=== PATIENT | female | born 1955 | race Hispanic/Latino ===

== ENCOUNTER 2018-04-26 11:56 | Emergency (ER) | payer MEDICAID ==
[~2018-04-26 11:56] MED LIST: ATOR40TA69 PO; INSU10VI3 SQ; SERT100T12 PO; TRAM50TA4 PO; TRAMADOL PO
[2018-04-26 12:18] LABS: BASOPHILS % (AUTO) 0.6 % (0.0-5.0); EOSINOPHILS % (AUTO) 1.1 % (0.0-8.0); HEMATOCRIT 42.2 % (36-48); LYMPHOCYTES % (AUTO) 31.4 % (21.0-51.0); MEAN CORPUSCULAR HEMOGLOBIN 29.5 pg (27.0-33.0); MEAN CORPUSCULAR HGB CONC 33.6 g/dL (32.0-36.0); MONOCYTES % (AUTO) 5.8 % (3.0-13.0); NEUTROPHILS % (AUTO) 61.1 % (40.0-77.0); NUCLEATED RED BLOOD CELLS 0.1 % (0.0-0.19); PLATELET COUNT (AUTO) 194 K/uL (130-400); RED CELL DISTRIBUTION WIDTH 12.9 % (11.0-15.5)
[2018-04-26] MEDS ORDERED: ASPIRIN 325 MG TABLET ONE (12:19)
[2018-04-26 12:32] LABS: B-TYPE NATRIURETIC PEPTIDE 14 pg/mL (0-100)
[2018-04-26 12:34] LABS: ALBUMIN 3.2 g/dL (3.5-5.0); BILIRUBIN,TOTAL 0.4 mg/dL (0.2-1.0); CREATININE 0.7 mg/dL (0.5-1.5); INR 0.89 (0.85-1.15); POTASSIUM 4.6 mmol/L (3.5-5.1); PROTHROMBIN TIME 9.4 SEC (9.6-11.6); TOTAL PROTEIN, SERUM 6.9 g/dL (6.0-8.3)
[2018-04-26] MEDS ORDERED: INSULIN HUMULIN R 100 UNIT/ML 3ML ONE (13:32)
[2018-04-26 14:17] LABS: CREATININE 0.7 mg/dL (0.5-1.5); POTASSIUM 3.7 mmol/L (3.5-5.1)
== END 2018-04-26 14:53 | disposition home or self-care (01) ==
LOC: EDH 11:56
DX: R07.89 Other chest pain (principal); E11.65 Type 2 diabetes mellitus with hyperglycemia; E78.5 Hyperlipidemia, unspecified; F32.9 Major depressive disorder, single episode, unspecified; Z98.890 Other specified postprocedural states
CPT/HCPCS: 36415; 71045; 80053; 82550; 83880; 84484 ×2; 85025; 85610; 85730; 93005 ×2; 96374; 99284; J1815; 80048

== ENCOUNTER 2018-11-27 18:15 | Emergency (ER) | payer MEDICAID ==
[2018-11-27 20:33] LABS: BASOPHILS % (AUTO) 1.4 % (0.0-5.0); EOSINOPHILS % (AUTO) 1.4 % (0.0-8.0); HEMATOCRIT 45.5 % (36-48); LYMPHOCYTES % (AUTO) 44.7 % (21.0-51.0); MEAN CORPUSCULAR HEMOGLOBIN 30.1 pg (27.0-33.0); MEAN CORPUSCULAR HGB CONC 34.2 g/dL (32.0-36.0); MEAN CORPUSCULAR VOLUME 87.9 fL (79-99); MONOCYTES % (AUTO) 7.2 % (3.0-13.0); NEUTROPHILS % (AUTO) 45.3 % (40.0-77.0); NUCLEATED RED BLOOD CELLS 0.2 % (0.0-0.19); PLATELET COUNT (AUTO) 192 K/uL (130-400); RED BLOOD CELL COUNT(AUTO) 5.18 MIL/uL (4.00-5.50); RED CELL DISTRIBUTION WIDTH 13.2 % (11.0-15.5); WHITE BLOOD COUNT (AUTO) 7.9 K/uL (4.8-10.8)
[2018-11-27 20:41] LABS: CREATININE 0.7 mg/dL (0.5-1.5); POTASSIUM 4.1 mmol/L (3.5-5.1)
[2018-11-27 20:51] LABS: ALBUMIN 3.6 g/dL (3.5-5.0); BILIRUBIN,TOTAL 0.4 mg/dL (0.2-1.0); TOTAL PROTEIN, SERUM 7.2 g/dL (6.0-8.3)
== END 2018-11-27 21:48 | disposition home or self-care (01) ==
LOC: EDH 18:15
DX: N64.9 Disorder of breast, unspecified (principal); E11.65 Type 2 diabetes mellitus with hyperglycemia; E78.5 Hyperlipidemia, unspecified; F32.9 Major depressive disorder, single episode, unspecified; Z87.891 Personal history of nicotine dependence; Z79.4 Long term (current) use of insulin
CPT/HCPCS: 36415; 71046; 76641; 80053; 85025

== ENCOUNTER → 2018-12-11 | Outpatient (CLI) | payer MEDICAID | END | disposition home or self-care (01) | LOC: RAH 10:54 | PROVIDERS: ATTEND Family Medicine | DX: R92.1 Mammographic calcification found on diagnostic imaging of breast (principal); N63.10 Unspecified lump in the right breast, unspecified quadrant | CPT/HCPCS: 76641; 77066 ==

== ENCOUNTER → 2019-01-09 | Outpatient (CLI) | payer MEDICAID | END | disposition home or self-care (01) | LOC: RAH 13:34 | PROVIDERS: ATTEND Family Medicine | DX: E11.22 Type 2 diabetes mellitus with diabetic chronic kidney disease (principal); N18.9 Chronic kidney disease, unspecified | CPT/HCPCS: 76770 ==

== ENCOUNTER 2019-03-12 13:18 | Emergency (ER) | payer MEDICAID ==
[2019-03-12 14:19] LABS: BASOPHILS % (AUTO) 0.8 % (0.0-5.0); EOSINOPHILS % (AUTO) 1.3 % (0.0-8.0); HEMATOCRIT 44.9 % (36-48); LYMPHOCYTES % (AUTO) 30.9 % (21.0-51.0); MEAN CORPUSCULAR HEMOGLOBIN 30.4 pg (27.0-33.0); MEAN CORPUSCULAR VOLUME 89.5 fL (79-99); NUCLEATED RED BLOOD CELLS 0.1 % (0.0-0.19); PLATELET COUNT (AUTO) 209 K/uL (130-400); RED BLOOD CELL COUNT(AUTO) 5.02 MIL/uL (4.00-5.50); RED CELL DISTRIBUTION WIDTH 13.2 % (11.0-15.5); WHITE BLOOD COUNT (AUTO) 7.4 K/uL (4.8-10.8)
[2019-03-12] MEDS ORDERED: ONDANSETRON HCL 4 MG/2 ML VIAL ONE (14:36)
[2019-03-12] MEDS ORDERED: MORPHINE SULFATE 4 MG/1ML SYG ONE (14:37)
[2019-03-12] MEDS ORDERED: SODIUM CHLORIDE 0.9% 1000ML 1,000 ML IV ONE ×2 (14:39→15:11)
[2019-03-12 14:46] LABS: ALBUMIN 3.5 g/dL (3.5-5.0); BILIRUBIN,TOTAL 0.3 mg/dL (0.2-1.0); CREATININE 0.8 mg/dL (0.5-1.5); POTASSIUM 4.3 mmol/L (3.5-5.1); TOTAL PROTEIN, SERUM 7.4 g/dL (6.0-8.3)
[2019-03-12] MEDS ORDERED: INSULIN HUMULIN R 100 UNIT/ML 3ML ONE (15:14)
[2019-03-12 15:48] LABS: APPEARANCE,URINE Clear (CLEAR); BILIRUBIN,URINE Negative (NEGATIVE); COLOR,URINE Yellow (YELLOW); GLUCOSE, URINE (UA) >=1000 mg/dL (NEGATIVE); KETONES,URINE Negative (NEGATIVE); LEUKOCYTE ESTERASE ,URINE Negative (NEGATIVE); NITRATE,URINE Negative (NEGATIVE); OCCULT BLOOD,URINE Negative (NEGATIVE); PROTEIN,URINE Negative (NEGATIVE); UROBILINOGEN,URINE 0.2 mg/dL (0.2-1.0)
== END 2019-03-12 17:20 | disposition home or self-care (01) ==
LOC: EDH 13:18
DX: K59.00 Constipation, unspecified (principal); E11.65 Type 2 diabetes mellitus with hyperglycemia; R10.9 Unspecified abdominal pain; F32.9 Major depressive disorder, single episode, unspecified; E78.5 Hyperlipidemia, unspecified; Z79.4 Long term (current) use of insulin
CPT/HCPCS: 36415; 74176; 80053; 81003; 82948 ×2; 83690; 85025; 96361; 96374; 96375; 99285; J1815; J2270; J2405; J7030 ×2

== ENCOUNTER 2019-07-26 06:19 | Day surgery (SDC) | payer MEDICAID ==
[~2019-07-26] VITALS: Ht 170.2 cm; Wt 90.7 kg
[2019-07-26] MEDS ORDERED: SODIUM CHLORIDE 0.9% 1000ML 1,000 ML IV ONE (06:24)
[2019-07-26 08:10] VITALS: BP 104/51
[2019-07-26] MEDS ORDERED: LEVO50TA11 PO (08:24)
[2019-07-26] MEDS ORDERED: PROPOFOL 10 MG/ML 20ML VIAL IV ONE (09:03)
[2019-07-26 09:15] VITALS: BP 107/71
[2019-07-26 09:20] VITALS: BP 117/69
[2019-07-26 09:25] VITALS: BP 120/71
[2019-07-26 09:30] VITALS: BP 113/67
== END 2019-07-26 09:40 | disposition home or self-care (01) ==
LOC: ENDO 06:19 → DAH 06:19 → ENDO 09:40
PROVIDERS: ATTEND Internal Medicine Gastroenterology
DX: Z12.11 Encounter for screening for malignant neoplasm of colon (principal); I10 Essential (primary) hypertension; E78.5 Hyperlipidemia, unspecified; E11.9 Type 2 diabetes mellitus without complications; E03.9 Hypothyroidism, unspecified; E66.9 Obesity, unspecified; F17.210 Nicotine dependence, cigarettes, uncomplicated; Z68.31 Body mass index [BMI] 31.0-31.9, adult; Z86.010 Personal history of colon polyps; Z79.899 Other long term (current) drug therapy; Z79.4 Long term (current) use of insulin
CPT/HCPCS: 82948 ×2; A4215; A4221; A4222; A4223; A4606; A4615; A4663; G0105; J2704; J7030

== ENCOUNTER 2022-10-29 10:46 | Emergency (ER) | payer MEDICARE ==
[~2022-10-29] VITALS: Ht 152.4 cm; Wt 97.1 kg
[~2022-10-29 10:46] MED LIST changes: +LEVO50TA11 PO; -SERT100T12 PO; -TRAM50TA4 PO; -TRAMADOL PO
[2022-10-29] MEDS ORDERED: 0.9%NACL 1000ML 1,000 ML IV ONE ×2 (11:30→13:00)
[2022-10-29 11:53] LABS: EOSINOPHILS % (AUTO) 1.3 % (0.0-8.0); HEMATOCRIT 45.9 % (36-48); LYMPHOCYTES % (AUTO) 35.7 % (21.0-51.0); MEAN CORPUSCULAR HEMOGLOBIN 29.3 pg (27.0-33.0); MEAN CORPUSCULAR HGB CONC 34.4 g/dL (32.0-36.0); MEAN CORPUSCULAR VOLUME 85.2 fL (79-99); MONOCYTES % (AUTO) 7.8 % (3.0-13.0); NEUTROPHILS % (AUTO) 52.6 % (40.0-77.0); PLATELET COUNT (AUTO) 227 K/uL (130-400); RED BLOOD CELL COUNT(AUTO) 5.39 MIL/uL (4.00-5.50); WHITE BLOOD COUNT (AUTO) 9.2 K/uL (4.8-10.8)
[2022-10-29 11:59] LABS: CREATININE 0.7 mg/dL (0.5-1.5); POTASSIUM 4.6 mmol/L (3.5-5.1)
[2022-10-29 12:04] LABS: ALBUMIN 3.7 g/dL (3.5-5.0); TOTAL PROTEIN, SERUM 7.5 g/dL (6.0-8.3)
[2022-10-29 12:22] LABS: APPEARANCE,URINE CLEAR (CLEAR); BILIRUBIN,URINE NEGATIVE (NEGATIVE); COLOR,URINE LIGHT-YELLOW (YELLOW); GLUCOSE, URINE (UA) >=1000 mg/dL (NEGATIVE); KETONES,URINE 20 mg/dL (NEGATIVE); LEUKOCYTE ESTERASE ,URINE 25 Leu/uL (NEGATIVE); NITRATE,URINE NEGATIVE (NEGATIVE); OCCULT BLOOD,URINE NEGATIVE (NEGATIVE); PH,URINE 5.5 (5.0-8.0); PROTEIN,URINE NEGATIVE (NEGATIVE); UROBILINOGEN,URINE 0.2 mg/dL (0.2-1.0)
[2022-10-29 12:24] LABS: RBC,URINE 0-1 /HPF (0-1); SQUAMOUS EPITHELIAL CELL,UR FEW /HPF (0-2)
[2022-10-29] MEDS ORDERED: CIPOTIC OT (14:05)
[2022-10-29 18:12] VITALS: BP 136/78
== END 2022-10-29 18:13 | disposition home or self-care (01) ==
LOC: EDH 10:46
DX: H60.91 Unspecified otitis externa, right ear (principal); E11.9 Type 2 diabetes mellitus without complications; E78.00 Pure hypercholesterolemia, unspecified; Z79.4 Long term (current) use of insulin; Z20.822 Contact with and (suspected) exposure to COVID-19
CPT/HCPCS: 99284; 96360; 70486; 71045; 96361; 87635; 80053; 85025; 87880; 87804 ×2; 82948; 83605; 81001; 36415; C9803; J7030

== ENCOUNTER 2023-08-28 11:28 | Observation (INO) | payer MEDICARE ==
[~2023-08-28] VITALS: Ht 147.3 cm; Wt 92.6 kg
[~2023-08-28 11:28] MED LIST changes: +CIPOTIC OT
[2023-08-28 11:51] LABS: BASOPHILS # (AUTO) 0.08 K/uL (0.00-0.20); BASOPHILS % (AUTO) 0.9 % (0.0-5.0); EOSINOPHILS # (AUTO) 0.22 K/uL (0.00-0.70); EOSINOPHILS % (AUTO) 2.6 % (0.0-8.0); HEMATOCRIT 42.9 % (36-48); IMMATURE GRANULOCYTE ABSOLUTE 0.15 K/uL (0-1); LYMPHOCYTES # (AUTO) 2.8 K/uL (1.0-4.8); LYMPHOCYTES % (AUTO) 33.1 % (21.0-51.0); MEAN CORPUSCULAR HEMOGLOBIN 29.2 pg (27.0-33.0); MEAN CORPUSCULAR HGB CONC 34.3 g/dL (32.0-36.0); MEAN CORPUSCULAR VOLUME 85.1 fL (79-99); MONOCYTES # (AUTO) 0.6 K/uL (0.1-1.0); MONOCYTES % (AUTO) 6.5 % (3.0-13.0); NEUTROPHILS # (AUTO) 4.7 K/uL (1.8-7.7); NEUTROPHILS % (AUTO) 55.1 % (40.0-77.0); PLATELET COUNT (AUTO) 244 K/uL (130-400); RED BLOOD CELL COUNT(AUTO) 5.04 MIL/uL (4.00-5.50); RED CELL DISTRIBUTION WIDTH 13.1 % (11.0-15.5); WHITE BLOOD COUNT (AUTO) 8.5 K/uL (4.8-10.8)
[2023-08-28 12:00] LABS: APPEARANCE,URINE CLEAR (CLEAR); BILIRUBIN,URINE NEGATIVE (NEGATIVE); COLOR,URINE LIGHT-YELLOW (YELLOW); GLUCOSE, URINE (UA) >=1000 mg/dL (NEGATIVE); KETONES,URINE NEGATIVE (NEGATIVE); LEUKOCYTE ESTERASE ,URINE NEGATIVE Leu/uL (NEGATIVE); NITRATE,URINE NEGATIVE (NEGATIVE); OCCULT BLOOD,URINE SMALL (NEGATIVE); PROTEIN,URINE NEGATIVE (NEGATIVE); UROBILINOGEN,URINE 0.2 mg/dL (0.2-1.0)
[2023-08-28] MEDS: NITROGLYCERIN 0.4 MG SL TAB SL ONE (12:00)
[2023-08-28] MEDS: NITROGLYCERIN 0.4 MG SL TAB SL PRN (12:00)
[2023-08-28 12:01] LABS: ADD UA MICROSCOPIC YES
[2023-08-28 12:06] LABS: MUCUS,URINE RARE LPF (None Seen); SQUAMOUS EPITHELIAL CELL,UR FEW /HPF (0-2)
[2023-08-28 12:07] LABS: ALBUMIN 3.4 g/dL (3.5-5.0); BILIRUBIN,TOTAL 0.4 mg/dL (0.2-1.0); CREATININE 0.6 mg/dL (0.5-1.0); POTASSIUM 4.8 mmol/L (3.5-5.1); TOTAL PROTEIN, SERUM 7.5 g/dL (6.0-8.3)
[2023-08-28] MEDS: 0.9% NACL 500ML IV.SOLN 500 ML IV ONE (13:08)
[2023-08-28] MEDS: INSULIN HUMULIN R 100 UNIT/ML 3ML IV ONE (13:11)
[2023-08-28] MEDS ORDERED: IOHEXOL-350 75 ML VIAL IV ONE (13:18)
[2023-08-28] MEDS ORDERED: TICA90TA PO (14:15)
[2023-08-28] MEDS ORDERED: ASPI-1197 PO (14:15)
[2023-08-28] MEDS ORDERED: NITR0.4T50 SL (14:15)
[2023-08-28] MEDS ORDERED: ACETAMINOPHEN 325 MG TAB PO PRN (14:30)
[2023-08-28] MEDS ORDERED: ONDANSETRON 4MG TABLET PO PRN (14:30)
[2023-08-28] MEDS: INSULIN LISPRO 100 UNIT/ML 3ML SQ SCH (16:29)
[2023-08-28 18:06] VITALS: O2SAT 99
[2023-08-28 18:10] VITALS: BP 123/73; PULSE 72; RESP 17
[2023-08-28] MEDS ORDERED: KETOROLAC 30MG VIAL (30MG/ML) IVP PRN (19:00)
[2023-08-28 19:45] VITALS: BP 133/72; PULSE 71; RESP 20
[2023-08-28] MEDS: KETOROLAC 30MG VIAL (30MG/ML) IVP SCH (19:53)
[2023-08-28 20:00] VITALS: O2SAT 100
[2023-08-28] MEDS: MELATONIN 5 MG TABLET PO SCH (21:35)
[2023-08-28] MEDS: TICAGRELOR 90 MG TABLET PO SCH (21:35)
[2023-08-29 00:45] VITALS: BP 108/55; PULSE 64; RESP 18
[2023-08-29 03:45] VITALS: BP 101/65; PULSE 62; RESP 20
[2023-08-29 07:00] VITALS: BP 125/63; PULSE 60; RESP 17
[2023-08-29 08:10] VITALS: O2SAT 98
[2023-08-29] MEDS: ASPIRIN 81MG CHEW TAB PO SCH (08:15)
[2023-08-29] MEDS: ENOXAPARIN SODIUM 40 MG/0.4 ML SYRINGE SQ SCH (08:16)
[2023-08-29 11:00] VITALS: BP 111/68; PULSE 68; RESP 20
[2023-08-29] MEDS: LACTULOSE 20 GM/30 ML UDCUP PO SCH (12:08)
== END 2023-08-29 16:00 | disposition home or self-care (01) ==
LOC: EDH 11:28 → EDHIP 14:01 → INTOOBSV 14:01 → 2DH 17:06
PROVIDERS: ADMIT Internal Medicine Infectious Disease; ATTEND Internal Medicine Infectious Disease
DX: R07.89 Other chest pain (principal); E11.65 Type 2 diabetes mellitus with hyperglycemia; I10 Essential (primary) hypertension; K59.00 Constipation, unspecified; E78.00 Pure hypercholesterolemia, unspecified; I25.119 Atherosclerotic heart disease of native coronary artery with unspecified angina pectoris; E66.01 Morbid (severe) obesity due to excess calories; I44.0 Atrioventricular block, first degree; Z95.5 Presence of coronary angioplasty implant and graft; Z79.899 Other long term (current) drug therapy; Z79.4 Long term (current) use of insulin; Z79.82 Long term (current) use of aspirin; Z68.41 Body mass index [BMI] 40.0-44.9, adult
CPT/HCPCS: 96374; 96375; 99285; 84484 ×3; 80053; 83880; 85025; 85378; 82948 ×5; 81001; 36415; 71045; 71270; 93005; 96372; J1815; G0378 ×26; J1885; Q9967; J1650

== ENCOUNTER → 2023-09-14 | Outpatient (CLI) | payer MEDICARE ==
[~2023-09-14] MED LIST changes: +ASPI-1197 PO; +NITR0.4T50 SL; +TICA90TA PO
== END | disposition home or self-care (01) ==
LOC: RAH 10:19
PROVIDERS: ATTEND Internal Medicine Cardiovascular Disease
DX: R07.9 Chest pain, unspecified (principal)
CPT/HCPCS: 93306

== ENCOUNTER → 2023-10-24 | Outpatient (CLI) | payer MEDICARE ==
[2023-10-24 16:43] LABS: MAGNESIUM 1.8 mg/dL (1.80-2.40)
== END | disposition home or self-care (01) ==
LOC: LAB 13:19
PROVIDERS: ATTEND Physician Assistant
DX: I10 Essential (primary) hypertension (principal)
CPT/HCPCS: 36415; 83735; 83880

== ENCOUNTER 2023-12-12 14:40 | Emergency (ER) | payer MEDICARE ==
[~2023-12-12] VITALS: Ht 149.9 cm; Wt 97.1 kg
[2023-12-12 14:48] VITALS: BP 136/72; PULSE 80; RESP 20
[2023-12-12] MEDS: GABAPENTIN 100 MG CAPSULE PO SCH (17:47)
[2023-12-12] MEDS ORDERED: GABA-529 PO (17:58)
== END 2023-12-12 18:05 | disposition home or self-care (01) ==
LOC: EDH 15:10
DX: G89.29 Other chronic pain (principal); M79.604 Pain in right leg; M79.605 Pain in left leg; E11.51 Type 2 diabetes mellitus with diabetic peripheral angiopathy without gangrene; E78.00 Pure hypercholesterolemia, unspecified; Z79.4 Long term (current) use of insulin; Z79.82 Long term (current) use of aspirin; Z95.5 Presence of coronary angioplasty implant and graft; Z98.890 Other specified postprocedural states

== ENCOUNTER 2023-12-28 15:14 | Emergency (ER) | payer MEDICARE ==
[~2023-12-28] VITALS: Ht 157.5 cm; Wt 99.8 kg
[~2023-12-28 15:14] MED LIST changes: +GABA-529 PO
[2023-12-28 15:51] LABS: APPEARANCE,URINE CLEAR (CLEAR); BILIRUBIN,URINE NEGATIVE (NEGATIVE); COLOR,URINE COLORLESS (YELLOW); GLUCOSE, URINE (UA) >=1000 mg/dL (NEGATIVE); KETONES,URINE NEGATIVE (NEGATIVE); LEUKOCYTE ESTERASE ,URINE NEGATIVE Leu/uL (NEGATIVE); NITRATE,URINE NEGATIVE (NEGATIVE); OCCULT BLOOD,URINE NEGATIVE (NEGATIVE); PROTEIN,URINE NEGATIVE (NEGATIVE); UROBILINOGEN,URINE 0.2 mg/dL (0.2-1.0)
[2023-12-28 15:52] LABS: ADD UA MICROSCOPIC YES
[2023-12-28 15:53] LABS: SQUAMOUS EPITHELIAL CELL,UR FEW /HPF (0-2)
[2023-12-28 15:53] LABS: BASOPHILS # (AUTO) 0.08 K/uL (0.00-0.20); EOSINOPHILS % (AUTO) 1.2 % (0.0-8.0); HEMATOCRIT 42.2 % (36-48); IMMATURE GRANULOCYTE ABSOLUTE 0.13 K/uL (0-1); LYMPHOCYTES # (AUTO) 2.9 K/uL (1.0-4.8); LYMPHOCYTES % (AUTO) 34.9 % (21.0-51.0); MEAN CORPUSCULAR HEMOGLOBIN 29.4 pg (27.0-33.0); MEAN CORPUSCULAR HGB CONC 35.3 g/dL (32.0-36.0); MEAN CORPUSCULAR VOLUME 83.2 fL (79-99); MONOCYTES # (AUTO) 0.7 K/uL (0.1-1.0); MONOCYTES % (AUTO) 8.3 % (3.0-13.0); NEUTROPHILS # (AUTO) 4.3 K/uL (1.8-7.7); PLATELET COUNT (AUTO) 257 K/uL (130-400); RED BLOOD CELL COUNT(AUTO) 5.07 MIL/uL (4.00-5.50); RED CELL DISTRIBUTION WIDTH 12.8 % (11.0-15.5); WHITE BLOOD COUNT (AUTO) 8.2 K/uL (4.8-10.8)
[2023-12-28 16:14] LABS: CREATININE 0.9 mg/dL (0.5-1.0); POTASSIUM 4.1 mmol/L (3.5-5.1)
[2023-12-28 16:45] LABS: INR <= 0.93 (0.85-1.15); PROTHROMBIN TIME 9.9 SEC (9.6-11.6)
[2023-12-28 16:46] LABS: PARTIAL THROMBOPLASTIN TIME 23.6 SEC (26.3-35.5)
[2023-12-28] MEDS: INSULIN HUMULIN R 100 UNIT/ML 3ML IV ONE (16:58)
[2023-12-28] MEDS: 0.9%NACL 1000ML 1,000 ML IV SCH (16:58)
[2023-12-28 17:17] LABS: AMPHET/METH SCREEN,URINE NEGATIVE (NEGATIVE); BARBITURATE SCREEN, URINE NEGATIVE (NEGATIVE); BENZODIAZEPINES SCREEN,URINE NEGATIVE (NEGATIVE); CANNABINOID SCREEN,URINE NEGATIVE (NEGATIVE); COCAINE SCREEN,URINE NEGATIVE (NEGATIVE); OPIATE SCREEN,URINE NEGATIVE (NEGATIVE); PHENCYCLIDINE SCREEN,URINE NEGATIVE (NEGATIVE)
[2023-12-28] MEDS: KETOROLAC 30MG VIAL (30MG/ML) IM ONE (18:41)
[2023-12-28 19:01] VITALS: BP 129/70; PULSE 77; RESP 17; O2SAT 100
[2024-01-01] MEDS ORDERED: CEPH500C2 PO (15:39)
[2024-01-01] MEDS ORDERED: INSU200I4 SQ ×2 (15:39)
[2024-01-01] MEDS ORDERED: METO-408 PO (15:39)
== END 2023-12-28 19:03 | disposition home or self-care (01) ==
LOC: EDH 15:14
DX: E11.65 Type 2 diabetes mellitus with hyperglycemia (principal); E78.00 Pure hypercholesterolemia, unspecified; I10 Essential (primary) hypertension; Z79.82 Long term (current) use of aspirin; Z79.899 Other long term (current) drug therapy; Z98.890 Other specified postprocedural states
CPT/HCPCS: 99285; 96374; 96361; 71045; 84484; 80048; 80305; 83690; 85025; 85610; 85730; 82948; 83605; 81001; 36415; 96372; 93005; 84145; J1815; J7030; J1885

== ENCOUNTER 2023-12-30 12:37 | Emergency (ER) | payer MEDICARE ==
[~2023-12-30] VITALS: Ht 177.8 cm; Wt 96.2 kg
[2023-12-30] MEDS: MORPHINE 2 MG SYG IVP ONE ×2 (13:56→14:29)
[2023-12-30] MEDS: ONDANSETRON 4MG INJ IVP ONE (13:56)
[2023-12-30] MEDS: FAMOTIDINE 20MG VIAL IV ONE (13:56)
[2023-12-30 14:06] LABS: BASOPHILS # (AUTO) 0.06 K/uL (0.00-0.20); BASOPHILS % (AUTO) 0.9 % (0.0-5.0); EOSINOPHILS # (AUTO) 0.15 K/uL (0.00-0.70); EOSINOPHILS % (AUTO) 2.3 % (0.0-8.0); HEMATOCRIT 39.9 % (36-48); LYMPHOCYTES # (AUTO) 2.7 K/uL (1.0-4.8); LYMPHOCYTES % (AUTO) 40.7 % (21.0-51.0); MEAN CORPUSCULAR HEMOGLOBIN 29.6 pg (27.0-33.0); MEAN CORPUSCULAR HGB CONC 34.6 g/dL (32.0-36.0); MEAN CORPUSCULAR VOLUME 85.4 fL (79-99); MONOCYTES # (AUTO) 0.5 K/uL (0.1-1.0); MONOCYTES % (AUTO) 7.6 % (3.0-13.0); NEUTROPHILS # (AUTO) 3.1 K/uL (1.8-7.7); PLATELET COUNT (AUTO) 237 K/uL (130-400); RED BLOOD CELL COUNT(AUTO) 4.67 MIL/uL (4.00-5.50); WHITE BLOOD COUNT (AUTO) 6.6 K/uL (4.8-10.8)
[2023-12-30 14:12] LABS: APPEARANCE,URINE CLEAR (CLEAR); BILIRUBIN,URINE NEGATIVE (NEGATIVE); COLOR,URINE LIGHT-YELLOW (YELLOW); GLUCOSE, URINE (UA) >=1000 mg/dL (NEGATIVE); KETONES,URINE NEGATIVE (NEGATIVE); LEUKOCYTE ESTERASE ,URINE NEGATIVE Leu/uL (NEGATIVE); NITRATE,URINE NEGATIVE (NEGATIVE); OCCULT BLOOD,URINE NEGATIVE (NEGATIVE); PROTEIN,URINE NEGATIVE (NEGATIVE); SQUAMOUS EPITHELIAL CELL,UR FEW /HPF (0-2); UROBILINOGEN,URINE 0.2 mg/dL (0.2-1.0)
[2023-12-30 14:14] LABS: POTASSIUM 4.3 mmol/L (3.5-5.1)
[2023-12-30 14:23] LABS: ALBUMIN 3.1 g/dL (3.5-5.0); BILIRUBIN,TOTAL 0.3 mg/dL (0.2-1.0); TOTAL PROTEIN, SERUM 6.7 g/dL (6.0-8.3)
[2023-12-30 14:39] LABS: INR <= 0.93 (0.85-1.15); PROTHROMBIN TIME 9.9 SEC (9.6-11.6)
[2023-12-30 14:41] LABS: PARTIAL THROMBOPLASTIN TIME 23.8 SEC (26.3-35.5)
[2023-12-30] MEDS: POLYETHYLENE GLYCOL 3350 17 GM POWD.PACK PO ONE (14:43)
[2023-12-30] MEDS ORDERED: DOCU-116 PO (15:28)
[2023-12-30 15:40] VITALS: BP 131/70; PULSE 74; RESP 18; O2SAT 96
[2024-01-01] MEDS ORDERED: METO-408 PO (15:39)
[2024-01-01] MEDS ORDERED: CEPH500C2 PO (15:39)
[2024-01-01] MEDS ORDERED: INSU200I4 SQ ×2 (15:39)
== END 2023-12-30 16:00 | disposition home or self-care (01) ==
LOC: EDH 12:37
DX: K59.00 Constipation, unspecified (principal); E11.9 Type 2 diabetes mellitus without complications; E78.00 Pure hypercholesterolemia, unspecified; I10 Essential (primary) hypertension; Z79.82 Long term (current) use of aspirin; Z79.899 Other long term (current) drug therapy; Z98.890 Other specified postprocedural states
CPT/HCPCS: 99285; 74176; 96374; 96375; 84484; 80053; 85025; 85610; 85730; 83605; 81001; 36415; 96376; 93005; 84145; J3490; J2270 ×2; J2405

== ENCOUNTER → 2024-01-01 | Emergency (ER) | payer MEDICARE ==
[~2024-01-01] VITALS: Ht 177.8 cm; Wt 102.1 kg
[~2024-01-01] MED LIST changes: +BisaCODYL 10 MG SUPP.RECT RC ONE; +CEPH500C2 PO; +DOCU-116 PO; +INSU200I4 SQ; +LACTULOSE 20 GM/30 ML UDCUP PO ONE; +METO-408 PO
[2024-01-01 15:56] VITALS: BP 95/65; PULSE 76; RESP 16
[2024-01-01 16:26] LABS: BASOPHILS # (AUTO) 0.05 K/uL (0.00-0.20); BASOPHILS % (AUTO) 0.6 % (0.0-5.0); EOSINOPHILS # (AUTO) 0.18 K/uL (0.00-0.70); EOSINOPHILS % (AUTO) 2.2 % (0.0-8.0); HEMATOCRIT 42.6 % (36-48); IMMATURE GRANULOCYTE ABSOLUTE 0.12 K/uL (0-1); LYMPHOCYTES # (AUTO) 3.2 K/uL (1.0-4.8); MEAN CORPUSCULAR HEMOGLOBIN 29.3 pg (27.0-33.0); MEAN CORPUSCULAR VOLUME 86.1 fL (79-99); MONOCYTES # (AUTO) 0.6 K/uL (0.1-1.0); MONOCYTES % (AUTO) 7.3 % (3.0-13.0); NEUTROPHILS # (AUTO) 4.1 K/uL (1.8-7.7); NEUTROPHILS % (AUTO) 49.4 % (40.0-77.0); PLATELET COUNT (AUTO) 254 K/uL (130-400); RED BLOOD CELL COUNT(AUTO) 4.95 MIL/uL (4.00-5.50); RED CELL DISTRIBUTION WIDTH 12.8 % (11.0-15.5); WHITE BLOOD COUNT (AUTO) 8.2 K/uL (4.8-10.8)
[2024-01-01 16:34] LABS: CREATININE 0.8 mg/dL (0.5-1.0); POTASSIUM 4.6 mmol/L (3.5-5.1)
[2024-01-01 16:38] LABS: ALBUMIN 3.4 g/dL (3.5-5.0); BILIRUBIN,TOTAL 0.4 mg/dL (0.2-1.0); TOTAL PROTEIN, SERUM 7.4 g/dL (6.0-8.3)
== END ==
LOC: EDH 15:41
DX: K59.00 Constipation, unspecified (principal); R10.9 Unspecified abdominal pain; E11.9 Type 2 diabetes mellitus without complications; E78.00 Pure hypercholesterolemia, unspecified; I10 Essential (primary) hypertension; Z79.4 Long term (current) use of insulin; Z79.82 Long term (current) use of aspirin; Z79.899 Other long term (current) drug therapy; Z98.890 Other specified postprocedural states
CPT/HCPCS: 36415; 80053; 83690; 85025

== ENCOUNTER → 2024-01-01 | Outpatient (CLI) | payer MEDICARE ==
[~2024-01-01] VITALS: Ht 157.5 cm; Wt 95.4 kg
[~2024-01-01] MED LIST changes: -BisaCODYL 10 MG SUPP.RECT RC ONE; -LACTULOSE 20 GM/30 ML UDCUP PO ONE
[2024-01-01 15:07] LABS: BASOPHILS # (AUTO) 0.04 K/uL (0.00-0.20); BASOPHILS % (AUTO) 0.5 % (0.0-5.0); EOSINOPHILS % (AUTO) 2.5 % (0.0-8.0); HEMATOCRIT 43.5 % (36-48); IMMATURE GRANULOCYTE ABSOLUTE 0.13 K/uL (0-1); LYMPHOCYTES % (AUTO) 37.5 % (21.0-51.0); MEAN CORPUSCULAR HEMOGLOBIN 29.4 pg (27.0-33.0); MEAN CORPUSCULAR HGB CONC 33.8 g/dL (32.0-36.0); MONOCYTES # (AUTO) 0.6 K/uL (0.1-1.0); MONOCYTES % (AUTO) 7.1 % (3.0-13.0); NEUTROPHILS # (AUTO) 4.1 K/uL (1.8-7.7); NEUTROPHILS % (AUTO) 50.8 % (40.0-77.0); PLATELET COUNT (AUTO) 250 K/uL (130-400)
[2024-01-01 15:08] LABS: APPEARANCE,URINE CLEAR (CLEAR); BILIRUBIN,URINE NEGATIVE (NEGATIVE); COLOR,URINE LIGHT-YELLOW (YELLOW); GLUCOSE, URINE (UA) >=1000 mg/dL (NEGATIVE); KETONES,URINE NEGATIVE (NEGATIVE); LEUKOCYTE ESTERASE ,URINE NEGATIVE Leu/uL (NEGATIVE); NITRATE,URINE NEGATIVE (NEGATIVE); OCCULT BLOOD,URINE NEGATIVE (NEGATIVE); PROTEIN,URINE NEGATIVE (NEGATIVE); UROBILINOGEN,URINE 0.2 mg/dL (0.2-1.0)
[2024-01-01 15:10] LABS: ADD UA MICROSCOPIC YES
[2024-01-01 15:11] LABS: BACTERIA,URINE RARE /HPF (None Seen); SQUAMOUS EPITHELIAL CELL,UR FEW /HPF (0-2)
[2024-01-01 15:14] LABS: CREATININE 0.7 mg/dL (0.5-1.0); POTASSIUM 4.9 mmol/L (3.5-5.1)
[2024-01-01 15:20] VITALS: BP 130/73; PULSE 75; RESP 19
[2024-01-01 15:20] LABS: INR <= 0.93 (0.85-1.15); PROTHROMBIN TIME 10.1 SEC (9.6-11.6)
[2024-01-01 15:21] LABS: PARTIAL THROMBOPLASTIN TIME 23.8 SEC (26.3-35.5)
[2024-01-01 15:43] LABS: B-TYPE NATRIURETIC PEPTIDE 11 pg/mL (0-100)
== END | disposition home or self-care (01) ==
LOC: DAH 10:00 → EDSTATUS 01-03 08:00
PROVIDERS: ATTEND Internal Medicine Cardiovascular Disease
DX: I73.9 Peripheral vascular disease, unspecified (principal); I44.4 Left anterior fascicular block; M79.605 Pain in left leg
CPT/HCPCS: 36415; 71045; 80048; 81001; 83880; 85025; 85610; 85730; 93005

== ENCOUNTER 2024-01-03 06:18 | Observation (INO) | payer MEDICARE ==
[~2024-01-03] VITALS: Ht 152.4 cm; Wt 94.1 kg
[~2024-01-03 06:18] MED LIST changes: -ASPI-1197 PO; -ATOR40TA69 PO; -CIPOTIC OT; -DOCU-116 PO; -GABA-529 PO; -INSU10VI3 SQ; -LEVO50TA11 PO
[2024-01-03 07:34] LABS: BASOPHILS # (AUTO) 0.05 K/uL (0.00-0.20); BASOPHILS % (AUTO) 0.7 % (0.0-5.0); EOSINOPHILS # (AUTO) 0.21 K/uL (0.00-0.70); EOSINOPHILS % (AUTO) 2.8 % (0.0-8.0); HEMATOCRIT 41.6 % (36-48); IMMATURE GRANULOCYTE ABSOLUTE 0.13 K/uL (0-1); LYMPHOCYTES # (AUTO) 2.7 K/uL (1.0-4.8); LYMPHOCYTES % (AUTO) 36.2 % (21.0-51.0); MEAN CORPUSCULAR HEMOGLOBIN 29.2 pg (27.0-33.0); MEAN CORPUSCULAR HGB CONC 33.9 g/dL (32.0-36.0); MEAN CORPUSCULAR VOLUME 86.1 fL (79-99); MONOCYTES # (AUTO) 0.6 K/uL (0.1-1.0); MONOCYTES % (AUTO) 8.6 % (3.0-13.0); NEUTROPHILS # (AUTO) 3.7 K/uL (1.8-7.7); PLATELET COUNT (AUTO) 218 K/uL (130-400); RED BLOOD CELL COUNT(AUTO) 4.83 MIL/uL (4.00-5.50); RED CELL DISTRIBUTION WIDTH 12.8 % (11.0-15.5); WHITE BLOOD COUNT (AUTO) 7.5 K/uL (4.8-10.8)
[2024-01-03 07:37] LABS: CREATININE 0.7 mg/dL (0.5-1.0); POTASSIUM 4.1 mmol/L (3.5-5.1)
[2024-01-03 08:17] LABS: APPEARANCE,URINE CLEAR (CLEAR); BILIRUBIN,URINE NEGATIVE (NEGATIVE); COLOR,URINE LIGHT-YELLOW (YELLOW); GLUCOSE, URINE (UA) >=1000 mg/dL (NEGATIVE); KETONES,URINE NEGATIVE (NEGATIVE); LEUKOCYTE ESTERASE ,URINE NEGATIVE Leu/uL (NEGATIVE); NITRATE,URINE NEGATIVE (NEGATIVE); OCCULT BLOOD,URINE NEGATIVE (NEGATIVE); PH,URINE 5.5 (5.0-8.0); PROTEIN,URINE NEGATIVE (NEGATIVE); UROBILINOGEN,URINE 0.2 mg/dL (0.2-1.0)
[2024-01-03 08:18] LABS: ADD UA MICROSCOPIC YES
[2024-01-03 08:19] LABS: MUCUS,URINE RARE LPF (None Seen); SQUAMOUS EPITHELIAL CELL,UR MOD /HPF (0-2); YEAST,URINE BUDDING FEW /HPF (None Seen)
[2024-01-03] MEDS: PEG 3350/NA SULF,BICARB,CL/KCL 4000 ML SOLN PO ONE (10:22)
[2024-01-03 14:15] VITALS: BP 139/83; PULSE 69; RESP 18
[2024-01-03 20:00] VITALS: BP 118/67; PULSE 71; RESP 18; O2SAT 100
[2024-01-03] MEDS ORDERED: LACTULOSE 20 GM/30 ML UDCUP PO PRN (22:00)
[2024-01-04] VITALS: BP 128/71; PULSE 73; RESP 18
[2024-01-04 04:00] VITALS: BP 137/78; PULSE 72; RESP 17
[2024-01-04 07:26] VITALS: BP 135/52; PULSE 65; RESP 18
[2024-01-04 07:56] LABS: BASOPHILS # (AUTO) 0.05 K/uL (0.00-0.20); BASOPHILS % (AUTO) 0.6 % (0.0-5.0); EOSINOPHILS # (AUTO) 0.18 K/uL (0.00-0.70); EOSINOPHILS % (AUTO) 2.3 % (0.0-8.0); HEMATOCRIT 40.2 % (36-48); IMMATURE GRANULOCYTE ABSOLUTE 0.11 K/uL (0-1); LYMPHOCYTES # (AUTO) 2.5 K/uL (1.0-4.8); LYMPHOCYTES % (AUTO) 31.6 % (21.0-51.0); MEAN CORPUSCULAR HGB CONC 34.3 g/dL (32.0-36.0); MEAN CORPUSCULAR VOLUME 84.5 fL (79-99); MONOCYTES # (AUTO) 0.6 K/uL (0.1-1.0); MONOCYTES % (AUTO) 7.6 % (3.0-13.0); NEUTROPHILS # (AUTO) 4.4 K/uL (1.8-7.7); NEUTROPHILS % (AUTO) 56.5 % (40.0-77.0); PLATELET COUNT (AUTO) 236 K/uL (130-400); RED BLOOD CELL COUNT(AUTO) 4.76 MIL/uL (4.00-5.50); RED CELL DISTRIBUTION WIDTH 12.8 % (11.0-15.5); WHITE BLOOD COUNT (AUTO) 7.8 K/uL (4.8-10.8)
[2024-01-04 08:24] LABS: BILIRUBIN,TOTAL 0.5 mg/dL (0.2-1.0); CREATININE 0.6 mg/dL (0.5-1.0); MAGNESIUM 1.7 mg/dL (1.80-2.40); POTASSIUM 3.6 mmol/L (3.5-5.1); TOTAL PROTEIN, SERUM 6.6 g/dL (6.0-8.3)
[2024-01-04] MEDS: TICAGrelor 90 MG TABLET PO SCH (08:25)
[2024-01-04] MEDS: INSULIN HUMULIN R 100 UNIT/ML 3ML SQ SCH (08:29)
[2024-01-04] MEDS ORDERED: ENOXAPARIN SODIUM 30 MG/0.3 ML SQ SCH (09:00)
[2024-01-04 09:02] VITALS: O2SAT 100
[2024-01-04] MEDS ORDERED: METOPROLOL SUCCINATE 25 MG TAB.SR.24H PO SCH (21:00)
== END 2024-01-04 11:20 | disposition home or self-care (01) ==
LOC: EDH 06:18 → EDHIP 10:02 → INTOOBSV 10:02 → WSH 13:49
PROVIDERS: ADMIT Internal Medicine Infectious Disease; ATTEND Internal Medicine Infectious Disease
DX: K59.00 Constipation, unspecified (principal); I25.10 Atherosclerotic heart disease of native coronary artery without angina pectoris; I10 Essential (primary) hypertension; E78.5 Hyperlipidemia, unspecified; E11.65 Type 2 diabetes mellitus with hyperglycemia; K42.9 Umbilical hernia without obstruction or gangrene; E66.01 Morbid (severe) obesity due to excess calories; Z95.5 Presence of coronary angioplasty implant and graft; Z68.41 Body mass index [BMI] 40.0-44.9, adult; Z79.899 Other long term (current) drug therapy; Z98.890 Other specified postprocedural states
CPT/HCPCS: 99284; 80048; 83690; 85025 ×2; 82948 ×2; 81001; 36415 ×2; 74018; 83735; 80053; J1815; G0378

== ENCOUNTER 2024-01-23 03:11 | Emergency (ER) | payer MEDICARE ==
[~2024-01-23] VITALS: Ht 162.6 cm; Wt 99.8 kg
[~2024-01-23 03:11] MED LIST changes: -CEPH500C2 PO
[2024-01-23 03:49] LABS: MEAN CORPUSCULAR HEMOGLOBIN 29.7 pg (27.0-33.0); MEAN CORPUSCULAR HGB CONC 33.9 g/dL (32.0-36.0); MEAN CORPUSCULAR VOLUME 87.6 fL (79-99); RED BLOOD CELL COUNT(AUTO) 4.68 MIL/uL (4.00-5.50); RED CELL DISTRIBUTION WIDTH 12.9 % (11.0-15.5); WHITE BLOOD COUNT (AUTO) 7.9 K/uL (4.8-10.8)
[2024-01-23 04:07] LABS: APPEARANCE,URINE CLEAR (CLEAR); BILIRUBIN,URINE NEGATIVE (NEGATIVE); COLOR,URINE LIGHT-YELLOW (YELLOW); GLUCOSE, URINE (UA) >=1000 mg/dL (NEGATIVE); KETONES,URINE NEGATIVE (NEGATIVE); LEUKOCYTE ESTERASE ,URINE 75 Leu/uL (NEGATIVE); NITRATE,URINE NEGATIVE (NEGATIVE); OCCULT BLOOD,URINE NEGATIVE (NEGATIVE); PH,URINE 5.5 (5.0-8.0); PROTEIN,URINE NEGATIVE (NEGATIVE); UROBILINOGEN,URINE 0.2 mg/dL (0.2-1.0)
[2024-01-23 04:08] LABS: ADD UA MICROSCOPIC YES
[2024-01-23 04:09] LABS: BACTERIA,URINE FEW /HPF (None Seen); MUCUS,URINE RARE LPF (None Seen); SQUAMOUS EPITHELIAL CELL,UR MOD /HPF (0-2)
[2024-01-23 04:16] LABS: CREATININE 0.6 mg/dL (0.5-1.0); POTASSIUM 4.4 mmol/L (3.5-5.1)
[2024-01-23] MEDS ORDERED: LEVO750T68 PO (05:53)
[2024-01-23] MEDS: levoFLOXacin 500 MG TABLET PO ONE (06:10)
[2024-01-23 06:44] VITALS: BP 110/62; PULSE 66; RESP 18; TEMP 98.5; O2SAT 96
== END 2024-01-23 06:46 | disposition home or self-care (01) ==
LOC: EDH 03:11
DX: I87.8 Other specified disorders of veins (principal); N39.0 Urinary tract infection, site not specified; E11.9 Type 2 diabetes mellitus without complications; E66.01 Morbid (severe) obesity due to excess calories; E78.00 Pure hypercholesterolemia, unspecified; I10 Essential (primary) hypertension; I25.2 Old myocardial infarction; K21.9 Gastro-esophageal reflux disease without esophagitis; Z79.4 Long term (current) use of insulin; Z79.899 Other long term (current) drug therapy; Z95.5 Presence of coronary angioplasty implant and graft; Z98.890 Other specified postprocedural states
CPT/HCPCS: 36415; 80048; 81001; 82150; 83690; 84484; 85027; 87086

== ENCOUNTER 2024-01-24 16:38 | Inpatient (IN) | payer MEDICARE ==
[~2024-01-24] VITALS: Ht 157.5 cm; Wt 97.4 kg
[~2024-01-24 16:38] MED LIST changes: +LEVO750T68 PO
[2024-01-24 19:57] LABS: CREATININE 0.7 mg/dL (0.5-1.0); POTASSIUM 4.8 mmol/L (3.5-5.1)
[2024-01-24 20:02] LABS: APPEARANCE,URINE CLEAR (CLEAR); BILIRUBIN,URINE NEGATIVE (NEGATIVE); COLOR,URINE COLORLESS (YELLOW); GLUCOSE, URINE (UA) >=1000 mg/dL (NEGATIVE); KETONES,URINE NEGATIVE (NEGATIVE); LEUKOCYTE ESTERASE ,URINE 75 Leu/uL (NEGATIVE); NITRATE,URINE NEGATIVE (NEGATIVE); OCCULT BLOOD,URINE NEGATIVE (NEGATIVE); PROTEIN,URINE NEGATIVE (NEGATIVE); UROBILINOGEN,URINE 0.2 mg/dL (0.2-1.0)
[2024-01-24 20:04] LABS: ADD UA MICROSCOPIC YES
[2024-01-24 20:06] LABS: BACTERIA,URINE RARE /HPF (None Seen); SQUAMOUS EPITHELIAL CELL,UR FEW /HPF (0-2); YEAST,URINE BUDDING RARE /HPF (None Seen)
[2024-01-24 23:48] LABS: BASOPHILS # (AUTO) 0.09 K/uL (0.00-0.20); EOSINOPHILS # (AUTO) 0.23 K/uL (0.00-0.70); EOSINOPHILS % (AUTO) 2.7 % (0.0-8.0); HEMATOCRIT 39.1 % (36-48); IMMATURE GRANULOCYTE ABSOLUTE 0.13 K/uL (0-1); LYMPHOCYTES # (AUTO) 3.1 K/uL (1.0-4.8); LYMPHOCYTES % (AUTO) 35.6 % (21.0-51.0); MEAN CORPUSCULAR HEMOGLOBIN 29.4 pg (27.0-33.0); MEAN CORPUSCULAR HGB CONC 34.5 g/dL (32.0-36.0); MEAN CORPUSCULAR VOLUME 85.2 fL (79-99); MONOCYTES # (AUTO) 0.8 K/uL (0.1-1.0); MONOCYTES % (AUTO) 8.8 % (3.0-13.0); NEUTROPHILS # (AUTO) 4.4 K/uL (1.8-7.7); NEUTROPHILS % (AUTO) 50.4 % (40.0-77.0); PLATELET COUNT (AUTO) 233 K/uL (130-400); RED BLOOD CELL COUNT(AUTO) 4.59 MIL/uL (4.00-5.50); RED CELL DISTRIBUTION WIDTH 12.8 % (11.0-15.5); WHITE BLOOD COUNT (AUTO) 8.6 K/uL (4.8-10.8)
[2024-01-24 23:59] LABS: CREATININE 0.7 mg/dL (0.5-1.0)
[2024-01-25] VITALS (9 sets, daily range): BP systolic 102–150; BP diastolic 54–95; PULSE 65–71; RESP 18–19; TEMP 97.7–98.6; O2SAT 98–99
[2024-01-25] MEDS: HEParin 5,000 UNIT VIAL SQ SCH (00:46)
[2024-01-25] MEDS: 1/2 NS 1000ML 1,000 ML IV SCH (00:46)
[2024-01-25] MEDS ORDERED: AEC81 PO (01:30)
[2024-01-25] MEDS: hydroMORPHone 0.5 MG SYG (0.5MG/0.5ML) IVP PRN (01:39)
[2024-01-25] MEDS: metOPROLol sucCINATE 25 MG TAB.SR.24H PO SCH (09:00)
[2024-01-25] MEDS: ASPIRIN 81 MG EC TAB PO SCH (09:17)
[2024-01-25] MEDS: TICAGrelor 90 MG TABLET PO SCH (09:17)
[2024-01-25] MEDS: ONDANSETRON 4MG INJ IVP PRN (21:33)
[2024-01-25] MEDS: atorVAStatin 40 MG TABLET PO SCH (21:45)
[2024-01-26] VITALS (12 sets, daily range): BP systolic 100–119; BP diastolic 45–62; PULSE 54–66; RESP 13–20; TEMP 97.4–98.4; O2SAT 98
[2024-01-26 10:04] LABS: HEMATOCRIT 38.6 % (36-48); MEAN CORPUSCULAR HGB CONC 34.5 g/dL (32.0-36.0); MEAN CORPUSCULAR VOLUME 84.1 fL (79-99); RED BLOOD CELL COUNT(AUTO) 4.59 MIL/uL (4.00-5.50); RED CELL DISTRIBUTION WIDTH 12.6 % (11.0-15.5); WHITE BLOOD COUNT (AUTO) 6.2 K/uL (4.8-10.8)
[2024-01-26 10:12] LABS: CREATININE 0.6 mg/dL (0.5-1.0); POTASSIUM 4.6 mmol/L (3.5-5.1)
[2024-01-26 10:19] LABS: ALBUMIN 2.8 g/dL (3.5-5.0); BILIRUBIN,TOTAL 0.6 mg/dL (0.2-1.0); MAGNESIUM 1.7 mg/dL (1.80-2.40); TOTAL PROTEIN, SERUM 6.3 g/dL (6.0-8.3)
[2024-01-26] MEDS: MAGNESIUM 2GM PREMIX 50ML 50 ML IV PRN (10:33)
[2024-01-26 12:02] LABS: INR 0.96 (0.85-1.15); PROTHROMBIN TIME 10.4 SEC (9.6-11.6)
[2024-01-26 12:04] LABS: PARTIAL THROMBOPLASTIN TIME 25.8 SEC (26.3-35.5)
[2024-01-26] MEDS: INSULIN humuLIN R 100 UNIT/ML 3ML SQ SCH (12:41)
[2024-01-26] MEDS ORDERED: LIDOCAINE HCL 400MG/20ML VIAL ONE (13:14)
[2024-01-26] MEDS ORDERED: IODIXANOL 320 MG/ML 100 ML VIAL ONE ×2 (13:14→14:36)
[2024-01-26] MEDS ORDERED: HEParin-NS 1,000 UNIT/500 ML 1,000 ML IV ONE (13:15)
[2024-01-26] MEDS ORDERED: NITROGLYCERIN 50MG VIAL ONE (13:15)
[2024-01-26] MEDS ORDERED: FENTanyl CITRate PF 50 MCG/1 ML 2ML VIAL ONE ×2 (13:18→15:31)
[2024-01-26] MEDS ORDERED: MIDAZOLAM HCL 1 MG/ML 2ML VIAL ONE ×3 (13:19→15:31)
[2024-01-26] MEDS ORDERED: HEParin 10,000 UNIT/10ML (1,000 UNIT/ML) VIAL ONE (13:24)
[2024-01-26] MEDS ORDERED: HEParin-NS 1,000 UNIT/500 ML 500 ML IV ONE (14:25)
[2024-01-26] MEDS ORDERED: GLUCAGON 1MG KIT 1 MG ML IM PRN (16:00)
[2024-01-26] MEDS ORDERED: DEXTROSE 50%-WATER 50 ML DISP.SYRIN IV PRN (16:00)
[2024-01-26] MEDS: 0.9%NACL 1000ML 1,000 ML IV SCH (16:29)
[2024-01-27 01:52] VITALS: O2SAT 96
[2024-01-27 03:27] VITALS: BP 117/65; PULSE 66; RESP 20; TEMP 98.5
[2024-01-27 08:00] VITALS: BP 97/58; PULSE 73; RESP 15; TEMP 98.5
[2024-01-27 08:56] VITALS: O2SAT 98
[2024-01-27 12:00] VITALS: BP 108/59; PULSE 79; RESP 15; TEMP 97.7
== END 2024-01-27 13:30 | disposition home or self-care (01) | DRG 279 ==
LOC: EDH 16:38 → EDHIP 23:25 → 3DH 01-25 01:06
PROVIDERS: ADMIT Internal Medicine; ATTEND Internal Medicine
PROC: 047Q34Z Dilation of Left Anterior Tibial Artery with Drug-eluting Intraluminal Device, Percutaneous Approach (ICD-10-PCS; principal; 2024-01-26)
PROC: B54BZZA Ultrasonography of Right Lower Extremity Veins, Guidance (ICD-10-PCS; 2024-01-26)
PROC: B4101ZZ Fluoroscopy of Abdominal Aorta using Low Osmolar Contrast (ICD-10-PCS; 2024-01-26)
PROC: B44GZZ3 Ultrasonography of Left Lower Extremity Arteries, Intravascular (ICD-10-PCS; 2024-01-26)
PROC: B41G1ZZ Fluoroscopy of Left Lower Extremity Arteries using Low Osmolar Contrast (ICD-10-PCS; 2024-01-26)
PROC: B41F1ZZ Fluoroscopy of Right Lower Extremity Arteries using Low Osmolar Contrast (ICD-10-PCS; 2024-01-26)
PROC: 04FQ3ZZ Fragmentation of Left Anterior Tibial Artery, Percutaneous Approach (ICD-10-PCS; 2024-01-26)
DX: E11.51 Type 2 diabetes mellitus with diabetic peripheral angiopathy without gangrene (principal); N39.0 Urinary tract infection, site not specified; E11.65 Type 2 diabetes mellitus with hyperglycemia; G89.29 Other chronic pain; E66.01 Morbid (severe) obesity due to excess calories; K21.9 Gastro-esophageal reflux disease without esophagitis; E78.00 Pure hypercholesterolemia, unspecified; F17.210 Nicotine dependence, cigarettes, uncomplicated; I99.8 Other disorder of circulatory system; I87.2 Venous insufficiency (chronic) (peripheral); I10 Essential (primary) hypertension; I25.10 Atherosclerotic heart disease of native coronary artery without angina pectoris; I25.2 Old myocardial infarction; Z79.02 Long term (current) use of antithrombotics/antiplatelets; Z79.82 Long term (current) use of aspirin; Z79.899 Other long term (current) drug therapy; Z95.5 Presence of coronary angioplasty implant and graft; Z68.39 Body mass index [BMI] 39.0-39.9, adult
CPT/HCPCS: 36415; 37252; 75716; 80048; 80053; 81001; 82948; 83605; 83735; 85025; 85027; 85610; 85730; 86140; 93925; 99156; 99157; C1760; C1769; C1893; C1894; C9773; G0378; J1170; J1644; J1815; J2250; J2405; J3010; J3475; J3490; Q9967; C1725; C1753; C1874; C1887

== ENCOUNTER 2024-03-31 09:59 | Emergency (ER) | payer MEDICARE ==
[~2024-03-31] VITALS: Ht 149.9 cm; Wt 99.8 kg
[~2024-03-31 09:59] MED LIST changes: +AEC81 PO; -LEVO750T68 PO
--- NOTE | 2024-03-31 10:39 | ERN ---
ED Note History of Present Illness Stated Complaint: LEFT LOWER EXTREMITY PAIN Chief Complaint: Lower Extremity Pain/Injury Time Seen by MD: 10:03 Dictation: 68-year-old male with history DM and peripheral arterial disease presents to the ED for evaluation of chronic left foot numbness. Patient reports left foot swelling, shortness a breath, chest pain fatigued, but denies any other associated symptoms at this time. Patient states she becomes short of breath when she walks and is unable to feel her left foot since it is really. Patient is currently taking Eliquis and Plavix. PCP- Dr. Mcnally. No other medical or surgical history mentioned. Allergies: Coded Allergies: No Known Drug Allergies (Verified Allergy, Unknown, 08/26/15) Home Meds Reported Medications Aspirin (ASPIRIN 81 MG ECTAB) 81 Mg Ectab, 81 MG PO DAILY, TAB.EC 01/25/24 Metoprolol Succinate (Metoprolol Succinate) 25 Mg Tab.er.24h, 25 MG PO HS, TAB 01/01/24 Insulin Degludec (Tresiba Flextouch U-200) 200 Unit/Ml (3 Ml) Insuln.pen, 60 UNIT SQ HS, SYRINGE 01/01/24 Insulin Degludec (Tresiba Flextouch U-200) 200 Unit/Ml (3 Ml) Insuln.pen, 50 UNIT SQ AM, SYRINGE 01/01/24 Nitroglycerin (Nitroglycerin) 0.4 Mg Tab.subl, 0.4 MG SL Q5MIN PRN for CHEST PAIN, #3 TAB.SL 08/28/23 Ticagrelor (Brilinta) 90 Mg Tablet, 90 MG PO BID, TAB 08/28/23 Past Medical History Past Medical History: CAD, Diabetes-Type II, High Cholesterol, Heart Disease, Hypertension, MD, Other Additional Past Medical Hx: PAD/PVD Surgical History: None Surgical History Other: CARDIAC STENTS; HEART ATTACK (07/2023) Family History: Negative Social History: Negative, Other History: Not Applicable Review of System Dictation Constitutional: Negative for fever,chills, and weight loss Eyes: Negative for injury, pain,redness, and discharge ENT: Negative for injury,pain or swelling Cardiovascular: Positive for chest pain, negative for palpitations, and edema Respiratory: Positive for shortness a breath, negative for cough, and wheezing, Abdomen/GI: Negative for abdominal pain, nausea, vomiting, diarrhea, and constipation Back: Negative for injury and pain : Negative for injury, bleeding and discharge MS/Extremity: Positive for left foot swelling, foot numbness Negative for injury and deformity Skin: Negative for rash, and discoloration Neuro: Negative for headache, weakness, numbness, tingling, and seizure Psych: Negative for suicide ideation, homicidal ideation, and hallucinations Initial Vital Sign VS Vital Signs Date Time Temp Pulse Resp B/P (MAP) Pulse Ox O2 Delivery O2 Flow Rate FiO2 03/31/24 10:00 97.9 74 14 149/100 100 Room Air 0 03/31/24 10:00 21 Physical Exam Dictation General: awake, alert, NAD Head/Face: Normocephalic, atraumatic Eyes: PERRL, EOMI, vision at baseline ENT: oral cavity clear, TMs clear, no signs of infection Neck: Trachea midline, supple, no nuchal rigidity Cardiovascular: RRR, normal S1/S2, No MRGs, no JVD Respiratory: CTAB, no respiratory distress, No rales or wheezes Abdomen: Soft, non-tender, non-distended, normal bowel sounds, no guarding or rebound. Skin: Warm, dry, normal turgor, no rash MS/Extremity: Left foot swelling, decreased sensation, capillary refill 4 seconds Neuro: COAx4, GCS 15, strength 5/5, CN 2-12 intact, normal cerebellar exam, normal gait, Psych: Normal behavior, mood, and affect normal Results (Laboratory/Radiology) Laboratory/Radiology Laboratory Tests Test 03/31/24 11:05 White Blood Count 7.3 K/uL (4.8-10.8) Red Blood Count 3.84 MIL/uL (4.00-5.50) L Hemoglobin 11.1 g/dL (12.0-16.0) L Hematocrit 33.3 % (36-48) L Mean Corpuscular Volume 86.7 fL (79-99) Mean Corpuscular Hemoglobin 28.9 pg (27.0-33.0) Mean Corpuscular Hemoglobin Concent 33.3 g/dL (32.0-36.0) Red Cell Distribution Width 13.6 % (11.0-15.5) Platelet Count 241 K/uL (130-400) Mean Platelet Volume 10.7 fL (7.5-10.5) H Immature Granulocyte % (Auto) 1.8 % (0-1) H Neutrophils (%) (Auto) 64.1 % (40.0-77.0) Lymphocytes (%) (Auto) 23.0 % (21.0-51.0) Monocytes (%) (Auto) 8.0 % (3.0-13.0) Eosinophils (%) (Auto) 2.3 % (0.0-8.0) Basophils (%) (Auto) 0.8 % (0.0-5.0) Neutrophils # (Auto) 4.7 K/uL (1.8-7.7) Lymphocytes # (Auto) 1.7 K/uL (1.0-4.8) Monocytes # (Auto) 0.6 K/uL (0.1-1.0) Eosinophils # (Auto) 0.17 K/uL (0.00-0.70) Basophils # (Auto) 0.06 K/uL (0.00-0.20) Absolute Immature Granulocyte (auto 0.13 K/uL (0-1) Nucleated Red Blood Cells 0.0 % (0.0-0.19) Sodium Level 144 mmol/L (136-145) Potassium Level 4.6 mmol/L (3.5-5.1) Chloride Level 107 mmol/L (101-111) Carbon Dioxide Level 32 mmol/L (21-32) Blood Urea Nitrogen 11 mg/dL (7-18) Creatinine 0.8 mg/dL (0.5-1.0) Glomerular Filtration Rate Calc 81 mL/min (>90) Random Glucose 213 mg/dL (70-105) H Total Calcium 8.6 mg/dL (8.5-10.1) Magnesium Level 1.70 mg/dL (1.80-2.40) L Total Bilirubin 0.3 mg/dL (0.2-1.0) Direct Bilirubin 0.1 mg/dL (0.0-0.3) Aspartate Amino Transf (AST/SGOT) 21 U/L (10-37) Alanine Aminotransferase (ALT/SGPT) 26 U/L (12-78) Alkaline Phosphatase 77 U/L (50-136) C-Reactive Protein, Quantitative 0.60 mg/L (0.5-3.0) B-Type Natriuretic Peptide 45 pg/mL (0-100) Total Protein 6.5 g/dL (6.0-8.3) Albumin 3.1 g/dL (3.5-5.0) L ED Course ED Course Orders Procedure Category Date Status Time Cbc With Differential LAB 03/31/24 In Process 10:34 Basic Metabolic Panel LAB 03/31/24 Complete 10:34 B-Type Natriuretic LAB 03/31/24 In Process Peptide 10:34 Magnesium LAB 03/31/24 Complete 10:34 Hepatic Function Panel LAB 03/31/24 Complete 10:34 Crp Quantitative LAB 03/31/24 Complete 10:34 Erythrocyte LAB 03/31/24 In Process Sedimentation Rate 10:34 Foot Comp 3+Vws Lt RAD 03/31/24 Resulted 10:34 Ketorolac PHA 03/31/24 Complete Tromethamine 15mg/Ml 11:00 12 Lead Ekg Tracing- EKG 03/31/24 Logged Technical 10:34 Current Medications Medications (Trade) Dose Ordered Sig/Kya Route PRN Reason Start Time Stop Time Status Last Admin Dose Admin Ketorolac Tromethamine (toRADol) 15 mg ONCE ONCE IV 03/31/24 11:00 03/31/24 11:01 DC 03/31/24 11:48 Vital Signs Date Time Temp Pulse Resp B/P (MAP) Pulse Ox O2 Delivery O2 Flow Rate FiO2 03/31/24 11:53 98.1 60 18 144/45 100 Room Air* 0 21 03/31/24 10:00 97.9 74 14 149/100 100 Room Air* 0 21 03/31/24 10:00 97.9 74 14 149/100 100 Room Air 0 Medical Decision Making MDM CC: lower leg pain & weakness Historian: patient Comorbidities: PAD, DLD, CAD, DM2, HTN Limitations by social determinates of health: none. Initial concern for infection, heart failure, liver failure, PVD, kidney disease causing edema. On clinical exam, symptoms most consistent with worsening PVD. No acute occlusion noted, poor pulses, but cap refill 4 seconds, warm to touch, NV intact. VS: HTN 149/100, otherwise stable. CBC: normocytic anemia, otherwise normal. BMP: elevated glucose 2123, otherwise normal. liver enxymes normal. CRP normal. BNP normal. EKG: NSR rate 61, LAD, good RWP, intervals stable, no STEMI, interpreted by me. Left foot XR: no acute bony abnormalities per my independent interpretation. There is some soft tissue swelling and vascular calcifications. Patient received IV toradol for pain. Improvement of pain. Will start patient on gabapentin, meloxicam. Recommend PCP follow up. MDM: Differential diagnosis: PAD, shortness a breath, foot numbness Previous outside records reviewed: Old ER visits. Need for hospitalization: Patient does meet criteria for hospitalization. Need for emergency major/minor surgery: No Patient's prior external medical records from other ER visits were reviewed by me as indicated. Prior testing and results from previous visits were reviewed. Prior tests were taken into account with medical decision making and resource utilization, independent historian/historians were used to obtain complete medical history. I independently interpreted the test that were performed, results were reviewed by me and considered findings on radiology if ordered. Medical management and examination interpretation discussions were had by me with other qualified healthcare professionals as indicated for the patient's care. DX & DISP Disposition: Discharge Departure Impression: Primary Impression: Severe peripheral arterial disease Additional Impressions: Hyperglycemia, Hypertension, Normocytic anemia Condition: Stable Scripts Meloxicam (Meloxicam) 15 Mg Tablet 15 MG PO DAILY PRN for PAIN for 10 Days, #10 TAB Prov: DEVIN FIELD DO 03/31/24 Gabapentin (Gabapentin) 100 Mg Capsule 1 CAP PO TID for 30 Days, #90 CAP 0 Refills Prov: DEVIN FIELD DO 03/31/24 Additional Instructions: Your symptoms are consistent with peripheral vascular disease. Your labwork shows high blood sugar and mild anemia. Continue with your home medications and follow up with the primary doctor. You also had high blood pressure. Continue taking your home medications and follow up with her primary doctor regarding this. For your symptoms, I have prescribed gabapentin. You can take this up to 3 times a day as needed for pain. Be sure to discuss this medication with her primary doctor. I have also prescribed meloxicam. You can take this daily for pain for a few days. Use sparingly. Please follow up with your primary doctor. Return to the emergency department as needed. Referrals: ABELARDO SALVADOR MD (PCP) I have reviewed, & agreed with my scribe's, documentation. (Entered by Mitchell Barbosa, acting as a scribe for Dr. Field) I personally scribed for DEVIN FIELD DO (LEJON) on 03/31/24 at 10:39. El ectronically submitted by Mitchell Barbosa ([facility]). DEVIN FIELD DO Mar 31, 2024 10:39
--- NOTE | 2024-03-31 11:12 | HMCIMG ---
FOOT COMP 3+VWS LT INDICATION: pain TECHNIQUE: FOOT COMP 3+VWS LT. FINDINGS/IMPRESSION: No displaced fracture or dislocation is seen. Correlate clinically. There is diffuse soft tissue swelling Vascular calcifications are noted.
[2024-03-31 11:15] LABS: BASOPHILS # (AUTO) 0.06 K/uL (0.00-0.20); BASOPHILS % (AUTO) 0.8 % (0.0-5.0); EOSINOPHILS # (AUTO) 0.17 K/uL (0.00-0.70); EOSINOPHILS % (AUTO) 2.3 % (0.0-8.0); HEMATOCRIT 33.3 % (36-48); IMMATURE GRANULOCYTE ABSOLUTE 0.13 K/uL (0-1); LYMPHOCYTES # (AUTO) 1.7 K/uL (1.0-4.8); MEAN CORPUSCULAR HEMOGLOBIN 28.9 pg (27.0-33.0); MEAN CORPUSCULAR HGB CONC 33.3 g/dL (32.0-36.0); MEAN CORPUSCULAR VOLUME 86.7 fL (79-99); MONOCYTES # (AUTO) 0.6 K/uL (0.1-1.0); NEUTROPHILS # (AUTO) 4.7 K/uL (1.8-7.7); NEUTROPHILS % (AUTO) 64.1 % (40.0-77.0); PLATELET COUNT (AUTO) 241 K/uL (130-400); RED BLOOD CELL COUNT(AUTO) 3.84 MIL/uL (4.00-5.50); RED CELL DISTRIBUTION WIDTH 13.6 % (11.0-15.5); WHITE BLOOD COUNT (AUTO) 7.3 K/uL (4.8-10.8)
[2024-03-31 11:33] LABS: ALBUMIN 3.1 g/dL (3.5-5.0); BILIRUBIN,DIRECT 0.1 mg/dL (0.0-0.3); BILIRUBIN,TOTAL 0.3 mg/dL (0.2-1.0); CREATININE 0.8 mg/dL (0.5-1.0); MAGNESIUM 1.7 mg/dL (1.80-2.40); POTASSIUM 4.6 mmol/L (3.5-5.1); TOTAL PROTEIN, SERUM 6.5 g/dL (6.0-8.3)
[2024-03-31 11:34] LABS: B-TYPE NATRIURETIC PEPTIDE 45 pg/mL (0-100)
[2024-03-31] MEDS: ketOROlac 15MG/ML VIAL (15MG/ML) IV ONE (11:48)
[2024-03-31 11:53] VITALS: BP 144/45; PULSE 60; RESP 18; TEMP 98; O2SAT 100
[2024-03-31 12:23] LABS: ERYTHROCYTE SEDIMENTATION RATE 35 MM/HR (0-30)
[2024-03-31] MEDS ORDERED: GABA-529 PO (12:26)
[2024-03-31] MEDS ORDERED: MELO-108 PO (12:26)
--- NOTE | 2024-03-31 17:53 | EKG ---
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
== END 2024-03-31 13:03 | disposition home or self-care (01) ==
LOC: EDH 09:59
DX: E11.51 Type 2 diabetes mellitus with diabetic peripheral angiopathy without gangrene (principal); E11.65 Type 2 diabetes mellitus with hyperglycemia; D64.9 Anemia, unspecified; I11.9 Hypertensive heart disease without heart failure; E78.00 Pure hypercholesterolemia, unspecified; I25.10 Atherosclerotic heart disease of native coronary artery without angina pectoris; I25.2 Old myocardial infarction; Z79.02 Long term (current) use of antithrombotics/antiplatelets; Z79.82 Long term (current) use of aspirin; Z95.5 Presence of coronary angioplasty implant and graft
CPT/HCPCS: 99285; 96374; 80076; 83735; 80048; 83880; 85025; 85651; 86140; 36415; 73630; 93005; J1885

== ENCOUNTER → 2024-04-05 | Outpatient (CLI) | payer MEDICARE ==
[~2024-04-05] MED LIST changes: +GABA-529 PO; +MELO-108 PO
[2024-04-05 13:04] LABS: ALBUMIN 3.2 g/dL (3.5-5.0); BILIRUBIN,TOTAL 0.4 mg/dL (0.2-1.0); CREATININE 0.7 mg/dL (0.5-1.0); POTASSIUM 4.1 mmol/L (3.5-5.1); TOTAL PROTEIN, SERUM 6.7 g/dL (6.0-8.3)
== END | disposition home or self-care (01) ==
LOC: LAB 09:33
PROVIDERS: ATTEND Nurse Practitioner Acute Care
DX: I10 Essential (primary) hypertension (principal); Z79.899 Other long term (current) drug therapy
CPT/HCPCS: 36415; 80053; 80061; 82306; 82607

== ENCOUNTER 2024-04-17 07:59 | Emergency (ER) | payer MEDICARE ==
[~2024-04-17] VITALS: Ht 157.5 cm; Wt 104.8 kg
--- NOTE | 2024-04-17 08:42 | ERN ---
ED Note History of Present Illness Stated Complaint: NUMBNESS Chief Complaint: Numbness Time Seen by MD: 08:10 Dictation: 68-year-old female presents to the ED for evaluation of left hand numbness onset 3 days ago. Patient reports blurry vision onset 1 month ago, SOB, feet swelling, but denies any other associated symptoms at this time. Patient reports history of a heart stent, DM, HTN, PAD and PVD. Allergies: Coded Allergies: No Known Drug Allergies (Verified Allergy, Unknown, 08/26/15) Home Meds Active Scripts Meloxicam (Meloxicam) 15 Mg Tablet, 15 MG PO DAILY PRN for PAIN for 10 Days, #10 TAB Prov:DEVIN LEONE DO 03/31/24 Gabapentin (Gabapentin) 100 Mg Capsule, 1 CAP PO TID for 30 Days, #90 CAP 0 Refills Prov:DEVIN LEONE DO 03/31/24 Reported Medications Aspirin (ASPIRIN 81 MG ECTAB) 81 Mg Ectab, 81 MG PO DAILY, TAB.EC 01/25/24 Metoprolol Succinate (Metoprolol Succinate) 25 Mg Tab.er.24h, 25 MG PO HS, TAB 01/01/24 Insulin Degludec (Tresiba Flextouch U-200) 200 Unit/Ml (3 Ml) Insuln.pen, 60 UNIT SQ HS, SYRINGE 01/01/24 Insulin Degludec (Tresiba Flextouch U-200) 200 Unit/Ml (3 Ml) Insuln.pen, 50 UNIT SQ AM, SYRINGE 01/01/24 Nitroglycerin (Nitroglycerin) 0.4 Mg Tab.subl, 0.4 MG SL Q5MIN PRN for CHEST PAIN, #3 TAB.SL 08/28/23 Ticagrelor (Brilinta) 90 Mg Tablet, 90 MG PO BID, TAB 08/28/23 Past Medical History Past Medical History: CAD, Diabetes-Type II, High Cholesterol, Heart Disease, Hypertension, ND, Other Additional Past Medical Hx: PAD/PVD Surgical History: None Surgical History Other: CARDIAC STENTS; HEART ATTACK (07/2023) Family History: Negative Social History: Negative, Other History: Not Applicable Review of System Dictation Constitutional: Negative for fever,chills, and weight loss Eyes: Positive for blurry vision Negative for injury, pain,redness, and discharge ENT: Negative for injury,pain or swelling Cardiovascular: Negative for chest pain, palpitations, and edema Respiratory: Positive for shortness a breath, negative for cough, and wheezing, Abdomen/GI: Negative for abdominal pain, nausea, vomiting, diarrhea, and constipation Back: Negative for injury and pain : Negative for injury, bleeding and discharge MS/Extremity: Negative for injury and deformity Skin: Negative for rash, and discoloration Neuro: Left hand numbness Negative for headache, weakness, tingling, and seizure Psych: Negative for suicide ideation, homicidal ideation, and hallucinations Initial Vital Sign VS Vital Signs Date Time Temp Pulse Resp B/P (MAP) Pulse Ox O2 Delivery O2 Flow Rate FiO2 04/17/24 08:04 98.2 69 18 114/55 97 04/17/24 09:16 Room Air* 0 21 Physical Exam Dictation General: awake, alert, NAD Head/Face: Normocephalic, atraumatic Eyes: PERRL, EOMI, vision at baseline ENT: oral cavity clear, TMs clear, no signs of infection Neck: Trachea midline, supple, no nuchal rigidity Cardiovascular: RRR, normal S1/S2, No MRGs, no JVD Respiratory: CTAB, no respiratory distress, No rales or wheezes Abdomen: Soft, non-tender, non-distended, normal bowel sounds, no guarding or rebound. Skin: Warm, dry, normal turgor, no rash MS/Extremity: Pulses equal, no cyanosis, neurovascular intact, FROM Neuro: COAx4, GCS 15, strength 5/5, CN 2-12 intact, normal cerebellar exam, normal gait, Psych: Normal behavior, mood, and affect normal Results (Laboratory/Radiology) Laboratory/Radiology Laboratory Tests Test 04/17/24 08:43 White Blood Count 8.8 K/uL (4.8-10.8) Red Blood Count 3.97 MIL/uL (4.00-5.50) L Hemoglobin 11.8 g/dL (12.0-16.0) L Hematocrit 35.4 % (36-48) L Mean Corpuscular Volume 89.2 fL (79-99) Mean Corpuscular Hemoglobin 29.7 pg (27.0-33.0) Mean Corpuscular Hemoglobin Concent 33.3 g/dL (32.0-36.0) Red Cell Distribution Width 13.2 % (11.0-15.5) Platelet Count 235 K/uL (130-400) Mean Platelet Volume 10.6 fL (7.5-10.5) H Immature Granulocyte % (Auto) 1.4 % (0-1) H Neutrophils (%) (Auto) 67.7 % (40.0-77.0) Lymphocytes (%) (Auto) 20.8 % (21.0-51.0) L Monocytes (%) (Auto) 7.8 % (3.0-13.0) Eosinophils (%) (Auto) 1.8 % (0.0-8.0) Basophils (%) (Auto) 0.5 % (0.0-5.0) Neutrophils # (Auto) 5.9 K/uL (1.8-7.7) Lymphocytes # (Auto) 1.8 K/uL (1.0-4.8) Monocytes # (Auto) 0.7 K/uL (0.1-1.0) Eosinophils # (Auto) 0.16 K/uL (0.00-0.70) Basophils # (Auto) 0.04 K/uL (0.00-0.20) Absolute Immature Granulocyte (auto 0.12 K/uL (0-1) Nucleated Red Blood Cells 0.0 % (0.0-0.19) Sodium Level 141 mmol/L (136-145) Potassium Level 4.3 mmol/L (3.5-5.1) Chloride Level 105 mmol/L (101-111) Carbon Dioxide Level 31 mmol/L (21-32) Blood Urea Nitrogen 21 mg/dL (7-18) H Creatinine 0.6 mg/dL (0.5-1.0) Glomerular Filtration Rate Calc 99 mL/min (>90) Random Glucose 78 mg/dL (70-105) Total Calcium 8.6 mg/dL (8.5-10.1) Total Bilirubin 0.4 mg/dL (0.2-1.0) Direct Bilirubin 0.1 mg/dL (0.0-0.3) Aspartate Amino Transf (AST/SGOT) 18 U/L (10-37) Alanine Aminotransferase (ALT/SGPT) 27 U/L (12-78) Alkaline Phosphatase 84 U/L (50-136) Troponin I High Sensitivity < 4 ng/L (4-50) L B-Type Natriuretic Peptide 19 pg/mL (0-100) Total Protein 6.9 g/dL (6.0-8.3) Albumin 3.2 g/dL (3.5-5.0) L Labs Reviewed?: Yes EKG Comment: EKG 04/17/2024 time 8:46 a.m. ventricular rate 64, sinus rhythm, prolonged VA interval, left ventricular hypertrophy, anterior Q-waves, possibly to LVH. No STEMI X-RAY Comment: X-ray independently visualized by me REASON: sob ORDERING PHYSICIAN: GERRI JUAREZ MD PROCEDURE: CXR1VW - CHEST 1VW CHEST 1VW REASON: sob COMPARISON: 01/01/2024 FINDINGS: There is borderline heart size increased since prior exam. There is also mild central vascular congestion. There are no pleural effusions. There are no focal masses or infiltrates. IMPRESSION: 1. Borderline cardiomegaly with mild central vascular congestion. DICTATED BY: ANGELITA GAN MD DATE: 04/17/[address] Scan Comment: CT independently visualized by me REASON: numbness ORDERING PHYSICIAN: GERRI JUAREZ MD PROCEDURE: HEAD WO - CT HEAD/BRAIN W/O CONTRAST Exam: NONCONTRAST CT BRAIN REASON: numbness. COMPARISON: None. TECHNIQUE: Images are obtained from vertex to the skull base. The exam was performed without IV contrast. FINDINGS: There is normal appearing brain parenchyma. There are no focal mass lesions. There is is no evidence of intracranial hemorrhage or acute stroke. Ventricles and sulci appear normal. Posterior fossa and brainstem structures are unremarkable. Paranasal sinuses and remaining extracranial soft tissues appear normal as well. IMPRESSION: 1. Normal noncontrast CT brain. CT was performed with one or more following dose reduction techniques: automated exposure control, adjustment of the mA and kv according to patient's size, or use of a iterative reconstruction technique. DICTATED BY: ANGELITA GAN MD DATE: 04/17/24 1008 ED Course ED Course Orders Procedure Category Date Status Time 12 Lead Ekg Tracing- EKG 04/17/24 Complete Technical 08:18 Cbc With Differential LAB 04/17/24 Complete 08:18 B-Type Natriuretic LAB 04/17/24 Complete Peptide 08:18 Basic Metabolic Panel LAB 04/17/24 Complete 08:18 Hepatic Function Panel LAB 04/17/24 Complete 08:18 Troponin I High LAB 04/17/24 Complete Sensitivity 08:18 Ct Head/Brain W/O CT 04/17/24 Resulted Contrast 08:18 Chest 1vw RAD 04/17/24 Resulted 08:18 Furosemide 40mg Vial PHA 04/17/24 Complete (Lasix 40mg Vial) 08:30 Current Medications Medications (Trade) Dose Ordered Sig/Kya Route PRN Reason Start Time Stop Time Status Last Admin Dose Admin Furosemide (LASix 40MG VIAL) 40 mg ONCE ONCE IV 04/17/24 08:30 04/17/24 08:31 DC 04/17/24 08:59 Vital Signs Date Time Temp Pulse Resp B/P (MAP) Pulse Ox O2 Delivery O2 Flow Rate FiO2 04/17/24 11:09 98.8 77 20 130/74 100 Room Air* 0 21 04/17/24 09:16 98.8 74 20 132/76 100 Room Air* 0 21 04/17/24 08:04 98.2 69 18 114/55 97 Medical Decision Making MDM MDM: Differential diagnosis: CHF, weakness, DM Previous outside records reviewed: Old ER visits. Need for hospitalization: Patient does meet criteria for hospitalization. Need for emergency major/minor surgery: No Patient's prior external medical records from other ER visits were reviewed by me as indicated. Prior testing and results from previous visits were reviewed. Prior tests were taken into account with medical decision making and resource utilization, independent historian/historians were used to obtain complete medical history. I independently interpreted the test that were performed, results were reviewed by me and considered findings on radiology if ordered. Medical management and examination interpretation discussions were had by me with other qualified healthcare professionals as indicated for the patient's care. 68-year-old female with dizziness generalized weakness, had some mild shortness of breath from baseline, patient has multiple medical problems including yaw betes hypertension end-stage renal disease, initial workup was stable on lab values normal negative troponin, chest x-ray shows mild vascular congestion patient is oxygenating well on room air, was given one dose of IV Lasix and says she improves and wants to go home offered admission for observation and additional diuresis but says that she does not want to stay in the hospital today. Patient was advised to return if worse in any way. DX & DISP Disposition: Discharge Departure Impression: Primary Impression: Diabetes mellitus with hyperglycemia Additional Impressions: Weakness, CHF (congestive heart failure) Condition: Stable Referrals: LISA OMALLEY (PCP) I have reviewed, & agreed with my scribe's, documentation. (Entered by Mitchell Barbosa, acting as a scribe for Dr. Juarez) I personally scribed for GERRI JUAREZ MD ([facility] on 04/17/24 at 08:42. Electronically submitted by Mitchell Barbosa ([facility]). I personally scribed for GERRI JUAREZ MD ([facility]) on 04/17/24 at 09:01. Electronically submitted by Mitchell Barbosa ([facility]). I personally scribed for GERRI JUAREZ MD ([facility]) on 04/17/24 at 10:38. Electronically submitted [facility] Mitchell Barbosa ([facility] I personally scribed for GERRI JUAREZ MD ([facility] on 04/17/24 at 11:46. Electronically submitted by Mitchell Barbosa ([facility] GERRI JUAREZ MD Apr 17, 2024 08:42
--- NOTE | 2024-04-17 08:50 | EKG ---
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
[2024-04-17] MEDS: furoSEMIDE 40MG VIAL IV ONE (08:59)
[2024-04-17 09:08] LABS: BASOPHILS # (AUTO) 0.04 K/uL (0.00-0.20); BASOPHILS % (AUTO) 0.5 % (0.0-5.0); EOSINOPHILS # (AUTO) 0.16 K/uL (0.00-0.70); EOSINOPHILS % (AUTO) 1.8 % (0.0-8.0); HEMATOCRIT 35.4 % (36-48); IMMATURE GRANULOCYTE ABSOLUTE 0.12 K/uL (0-1); LYMPHOCYTES # (AUTO) 1.8 K/uL (1.0-4.8); LYMPHOCYTES % (AUTO) 20.8 % (21.0-51.0); MEAN CORPUSCULAR HEMOGLOBIN 29.7 pg (27.0-33.0); MEAN CORPUSCULAR HGB CONC 33.3 g/dL (32.0-36.0); MEAN CORPUSCULAR VOLUME 89.2 fL (79-99); MONOCYTES # (AUTO) 0.7 K/uL (0.1-1.0); MONOCYTES % (AUTO) 7.8 % (3.0-13.0); NEUTROPHILS # (AUTO) 5.9 K/uL (1.8-7.7); NEUTROPHILS % (AUTO) 67.7 % (40.0-77.0); PLATELET COUNT (AUTO) 235 K/uL (130-400); RED BLOOD CELL COUNT(AUTO) 3.97 MIL/uL (4.00-5.50); RED CELL DISTRIBUTION WIDTH 13.2 % (11.0-15.5); WHITE BLOOD COUNT (AUTO) 8.8 K/uL (4.8-10.8)
[2024-04-17 09:16] LABS: CREATININE 0.6 mg/dL (0.5-1.0); POTASSIUM 4.3 mmol/L (3.5-5.1)
[2024-04-17 09:21] LABS: ALBUMIN 3.2 g/dL (3.5-5.0); BILIRUBIN,DIRECT 0.1 mg/dL (0.0-0.3); BILIRUBIN,TOTAL 0.4 mg/dL (0.2-1.0); TOTAL PROTEIN, SERUM 6.9 g/dL (6.0-8.3)
[2024-04-17 09:31] LABS: B-TYPE NATRIURETIC PEPTIDE 19 pg/mL (0-100)
--- NOTE | 2024-04-17 10:11 | HMCIMG ---
Exam: NONCONTRAST CT BRAIN REASON: numbness. COMPARISON: None. TECHNIQUE: Images are obtained from vertex to the skull base. The exam was performed without IV contrast. FINDINGS: There is normal appearing brain parenchyma. There are no focal mass lesions. There is is no evidence of intracranial hemorrhage or acute stroke. Ventricles and sulci appear normal. Posterior fossa and brainstem structures are unremarkable. Paranasal sinuses and remaining extracranial soft tissues appear normal as well. IMPRESSION: 1. Normal noncontrast CT brain. CT was performed with one or more following dose reduction techniques: automated exposure control, adjustment of the mA and kv according to patient's size, or use of a iterative reconstruction technique.
--- NOTE | 2024-04-17 10:18 | HMCIMG ---
CHEST 1VW REASON: sob COMPARISON: 01/01/2024 FINDINGS: There is borderline heart size increased since prior exam. There is also mild central vascular congestion. There are no pleural effusions. There are no focal masses or infiltrates. IMPRESSION: 1. Borderline cardiomegaly with mild central vascular congestion.
[2024-04-17 11:09] VITALS: BP 130/74; PULSE 77; RESP 20; TEMP 98.7; O2SAT 100
--- NOTE | 2024-04-17 12:38 | NUR ---
JUST SPOKE W/PTS DAUGHTER AND SHE SAID SHE WOULD BE ON HER WAY TO INFORMATION CONSULTANT THE PT
[2024-04-18] MEDS ORDERED: CEPH500B PO (06:07)
== END 2024-04-17 13:15 | disposition home or self-care (01) ==
LOC: EDH 07:59
DX: E11.65 Type 2 diabetes mellitus with hyperglycemia (principal); I11.0 Hypertensive heart disease with heart failure; I50.9 Heart failure, unspecified; E11.51 Type 2 diabetes mellitus with diabetic peripheral angiopathy without gangrene; E78.00 Pure hypercholesterolemia, unspecified; I25.10 Atherosclerotic heart disease of native coronary artery without angina pectoris; Z79.02 Long term (current) use of antithrombotics/antiplatelets; Z79.82 Long term (current) use of aspirin; Z79.899 Other long term (current) drug therapy; Z95.5 Presence of coronary angioplasty implant and graft
CPT/HCPCS: 99285; 96374; 70450; 71045; 80076; 84484; 80048; 83880; 85025; 36415; 93005; J1940

== ENCOUNTER 2024-04-18 04:37 | Emergency (ER) | payer MEDICARE ==
[~2024-04-18] VITALS: Ht 152.4 cm; Wt 104.3 kg
--- NOTE | 2024-04-18 04:59 | ERN ---
General Chief Complaint: Shortness of Breath Stated Complaint: SHORTNESS OF BREATH Time Seen by MD: 04:43 Source: patient History of Present Illness Initial Comments Patient is a 68-year-old female coming in to be evaluated for shortness of breath. Patient states he was seen here last week and was told she might have some congestion in her lungs. Patient has had any fever or chills no nausea no vomiting. Allergies: Coded Allergies: No Known Drug Allergies (Verified Allergy, Unknown, 08/26/15) Home Meds Active Scripts Meloxicam (Meloxicam) 15 Mg Tablet, 15 MG PO DAILY PRN for PAIN for 10 Days, #10 TAB Prov:DEVIN LEONE DO 03/31/24 Gabapentin (Gabapentin) 100 Mg Capsule, 1 CAP PO TID for 30 Days, #90 CAP 0 Refills Prov:DEVIN LEONE DO 03/31/24 Reported Medications Aspirin (ASPIRIN 81 MG ECTAB) 81 Mg Ectab, 81 MG PO DAILY, TAB.EC 01/25/24 Metoprolol Succinate (Metoprolol Succinate) 25 Mg Tab.er.24h, 25 MG PO HS, TAB 01/01/24 Insulin Degludec (Tresiba Flextouch U-200) 200 Unit/Ml (3 Ml) Insuln.pen, 60 UNIT SQ HS, SYRINGE 01/01/24 Insulin Degludec (Tresiba Flextouch U-200) 200 Unit/Ml (3 Ml) Insuln.pen, 50 UNIT SQ AM, SYRINGE 01/01/24 Nitroglycerin (Nitroglycerin) 0.4 Mg Tab.subl, 0.4 MG SL Q5MIN PRN for CHEST PAIN, #3 TAB.SL 08/28/23 Ticagrelor (Brilinta) 90 Mg Tablet, 90 MG PO BID, TAB 08/28/23 Past Medical History Past Medical History: CAD, Diabetes-Type II, High Cholesterol, Heart Disease, Hypertension, [place], Other Medical History Other: PAD/PVD Past Surgical History: None Surgical History Other: CARDIAC STENTS; HEART ATTACK (07/2023) Family History Family History: Negative Social History Social History: Negative, Other Female( History) History: Not Applicable ROS Dictation CONSTITUTIONAL: No chills, no fever, no weakness, no diaphoresis, no malaise. HEAD/FACE: No signs of trauma. EENT: No eye pain, no blurred vision, no tearing, no double vision, no ear pain, no ear discharge, no nose pain, no nasal congestion, no throat pain, no throat swelling, no mouth pain. RESPIRATORY: No cough, no orthopnea, SOB, no stridor, no wheezing. CARDIOVASCULAR: No chest pain, no edema, no palpitations, no syncope. GASTROINTESTINAL/ABDOMINAL: No abdominal pain, no constipation, no diarrhea, no nausea, no vomiting. GENITOURINARY: No abnormal discharge, no dysuria, no frequent urination, no hematuria. No complaints of pain in the genitals. MUSCULOSKELETAL: No back pain, no gout, no joint pain, no joint swelling, no muscle pain, no muscle stiffness, no neck pain. INTEGUMENTARY: No change in color, no change in hair/nails, no dryness, no lesion, no lumps, no rash. NEUROLOGICAL/PSYCH: No anxiety, not depressed, no emotional problem, no headache, no numbness, no pre-existing deficit, no history of seizures, no tremors, no weakness. HEMATOLOGIC/LYMPHATIC: Not anemic, no history of blood clots, no apparent bleeding, no bruising, glands not swollen. All Systems Negative, Except as Noted. Physical Exam Physical Exam Dictation VITAL SIGNS: Reviewed. GENERAL APPEARANCE: Alert, oriented x3, no acute distress, obese. HEAD AND FACE: Non-traumatic. EYES: PERRL, pink conjunctivas, eyelid no trauma, anterior chamber clear. EARS: Pinnas intact and no signs of trauma or erythema. Ear canals clear and no discharge. TMs no erythema. NOSE: No discharge, no bleeding. OROPHARYNX: Mouth normal, teeth no caries, tongue pink. Pharynx clear, no erythema. Tonsils no exudates, no abscesses noted. Mucous membrane moist. NECK: Supple, non-tender, no thyromegaly, no masses, no JVD, no bruits. BREAST: Deferred. CHEST: No tenderness, no crepitus, no paradoxical movement, no retractions. LUNGS: Clear, well-ventilated, symmetric, rales, no wheezing, rhonchi, no stridor, good breath sounds bilaterally. HEART: Regular rate, regular rhythm, no murmur, no gallops. VASCULAR: No peripheral edema. ABDOMEN: Soft, positive bowel sounds, nondistended, no guarding, nontender, no rebound, no masses no hepatomegaly, no splenomegaly, no Barton's sign, no hernias. RECTAL: Deferred. GENITAL: Deferred. NEUROLOGICAL: Normal speech, gross motor function intact, gross sensory fu nction intact. MUSCULOSKELETAL: Neck nontender, full range of motion, back nontender, full range of motion. EXTREMITIES: Nontender, full range of motion. SKIN: Color pink, dry, no turgor, no rash, no lacerations, no abrasions, no contusions. LYMPHATICS: Deferred. Results Laboratory and Microbiology Lab and Micro Result Laboratory Tests Test 04/18/24 04:58 04/18/24 05:13 04/18/24 05:25 SARS-CoV-2, RNA, NAAT NEGATIVE SARS CoV-2 White Blood Count 8.1 K/uL (4.8-10.8) Red Blood Count 3.91 MIL/uL (4.00-5.50) L Hemoglobin 11.6 g/dL (12.0-16.0) L Hematocrit 34.2 % (36-48) L Mean Corpuscular Volume 87.5 fL (79-99) Mean Corpuscular Hemoglobin 29.7 pg (27.0-33.0) Mean Corpuscular Hemoglobin Concent 33.9 g/dL (32.0-36.0) Red Cell Distribution Width 13.3 % (11.0-15.5) Platelet Count 251 K/uL (130-400) Mean Platelet Volume 10.8 fL (7.5-10.5) H Immature Granulocyte % (Auto) 1.5 % (0-1) H Neutrophils (%) (Auto) 54.4 % (40.0-77.0) Lymphocytes (%) (Auto) 31.6 % (21.0-51.0) Monocytes (%) (Auto) 8.2 % (3.0-13.0) Eosinophils (%) (Auto) 3.4 % (0.0-8.0) Basophils (%) (Auto) 0.9 % (0.0-5.0) Neutrophils # (Auto) 4.4 K/uL (1.8-7.7) Lymphocytes # (Auto) 2.5 K/uL (1.0-4.8) Monocytes # (Auto) 0.7 K/uL (0.1-1.0) Eosinophils # (Auto) 0.27 K/uL (0.00-0.70) Basophils # (Auto) 0.07 K/uL (0.00-0.20) Absolute Immature Granulocyte (auto 0.12 K/uL (0-1) Nucleated Red Blood Cells 0.0 % (0.0-0.19) Prothrombin Time 10.5 SEC (9.6-11.6) Prothromb Time International Ratio 0.97 (0.85-1.15) Sodium Level 135 mmol/L (136-145) L Potassium Level 4.1 mmol/L (3.5-5.1) Chloride Level 100 mmol/L (101-111) L Carbon Dioxide Level 28 mmol/L (21-32) Blood Urea Nitrogen 41 mg/dL (7-18) #H Creatinine 1.0 mg/dL (0.5-1.0) Glomerular Filtration Rate Calc 62 mL/min (>90) Random Glucose 65 mg/dL (70-105) L Total Calcium 8.8 mg/dL (8.5-10.1) Magnesium Level 2.00 mg/dL (1.80-2.40) Total Creatine Kinase 224 U/L (21-232) # Troponin I High Sensitivity < 4 ng/L (4-50) L B-Type Natriuretic Peptide 11 pg/mL (0-100) Urine Color YELLOW (YELLOW) Urine Appearance CLOUDY (CLEAR) H Urine pH 5.0 (5.0-8.0) Urine Specific [place] 1.025 (1.001-1.031) Urine Protein 20 mg/dL (NEGATIVE) H Urine Glucose (UA) NEGATIVE mg/dL (NEGATIVE) Urine Ketones NEGATIVE mg/dL (NEGATIVE) Urine Occult Blood NEGATIVE (NEGATIVE) Urine Nitrate NEGATIVE (NEGATIVE) Urine Bilirubin NEGATIVE mg/dL (NEGATIVE) Urine Urobilinogen 0.2 mg/dL (0.2-1.0) Urine Leukocyte Esterase 500 Sissy/uL (NEGATIVE) H Urine RBC 2-5 /HPF (0-1) H Urine WBC 11-25 /HPF (0-1) H Urine WBC Clumps (Auto) FEW /HPF (0-1) Urine Squamous Epithelial Cells MANY /HPF (0-2) Urine Bacteria MANY /HPF (None Seen) Urine Hyaline Casts 6-10 /LPF (0-1 /LPF) H Labs Reviewed?: Yes EKG/XRAY/US/CT/MRI EKG Comment 04/18/2024 time 4:55 a.m. Ventricular rate 59 Sinus rhythm [place] [address] wave elevation or depression X-RAY Comment Chest x-ray-[facility] MDM: Differential diagnosis: UTI, anxiousness, Patient is a 68-year-old female coming in to be evaluated for mild shortness of breath. During ER visit patient has been stable patient was found to have a urinary tract infection we will be discharged with oral antibiotics. Patient did receive some antibiotics while in the ER. ED Course Orders Procedure Category Date Status Time Cbc With Differential LAB 04/18/24 Complete 04:48 Prothrombin Time With LAB 04/18/24 Complete INR 04:48 B-Type Natriuretic LAB 04/18/24 Complete Peptide 04:48 Chest 1vw RAD 04/18/24 Taken 04:48 12 Lead Ekg Tracing- EKG 04/18/24 Complete Technical 04:48 Magnesium LAB 04/18/24 Complete 04:48 Creatine Kinase, Total LAB 04/18/24 Complete 04:48 Troponin I High LAB 04/18/24 Complete Sensitivity 04:48 Urinalysis Profile LAB 04/18/24 Complete 04:48 Basic Metabolic Panel LAB 04/18/24 Complete 04:48 Covid Rna Naat LAB 04/18/24 Complete 04:51 Culture Urine NADYA 04/18/24 In Process 05:36 Ceftriaxone 1g Vial PHA 04/18/24 Transmitted (Rocephine 1g Inj) 06:30 Current Medications Medications (Trade) Dose Ordered Sig/Kya Route PRN Reason Start Time Stop Time Status Last Admin Dose Admin Ceftriaxone Sodium (ROCEphine 1G INJ) 1 gm ONCE ONCE IVPB 04/18/24 06:30 04/18/24 06:31 Vital Signs Date Time Temp Pulse Resp B/P (MAP) Pulse Ox O2 Delivery O2 Flow Rate FiO2 04/18/24 05:51 97.9 60 18 112/51 97 Room Air* 0 21 04/18/24 04:39 98.1 61 16 107/58 97 Room Air 0 HEART Score Response (Comments) Value History: Low suspicion (0) 0 EKG: Normal 0 Age: > 65yrs (+2) 2 Risk Factors: 1-2 risk factors (+1) 1 Initial Troponin: Normal limit (0) 0 HEART Score Risk: Low Risk for MACE (1-3) Total 3 DX & DISP Disposition: Discharge Departure Impression: Primary Impression: UTI (urinary tract infection) Condition: Stable Scripts Cephalexin Monohydrate (Keflex) 500 Mg Cap 1 CAP PO TID for 10 Days, #30 CAP 0 Refills Prov: DIONNE PUGA MD 04/18/24 Additional Instructions: FOLLOW-UP WITH PRIMARY CARE PROVIDER IN 1 TO 2 DAYS. TAKE MEDICATIONS D IRECTED HERE IN THE EMERGENCY ROOM. OKAY TO CONTINUE HOME MEDICATIONS UNLESS OTHERWISE DISCUSSED DURING YOUR VISIT IN THE EMERGENCY ROOM TODAY. RETURN TO YOUR NEAREST EMERGENCY ROOM IF SYMPTOMS WORSEN OR IF THERE IS NO IMPROVEMENT. CALL 911 IF YOU NEED IMMEDIATE ASSISTANCE. TAKE TYLENOL [id number] NEEDED AND IF NO CONTRAINDICATIONS ARE PRESENT. INCREASE ORAL HYDRATION. A WOUND CULTURE OR URINE CULTURE WAS ORDERED HERE IN THE EMERGENCY ROOM DEPARTMENT PLEASE FOLLOW-UP WITH PRIMARY CARE PROVIDER AND ADVISE THEM TO GET REPEAT PORTS FROM OUR FACILITY. IF YOU HAD ANY STACEY WRAP/SPLINTS THAT WERE APPLIED HERE, PLEASE DO NOT REMOVE THEM UNTIL YOU SEE YOUR PRIMARY CARE OR SPECIALTY. Referrals: Referrals: LISA JENKINS MD (PCP) Time of Disposition: 06:06 DIONNE PUGA MD Apr 18, 2024 04:59
--- NOTE | 2024-04-18 05:13 | EKG ---
[facility] Test Date: 2024-04-18 Test Time: 04:55:19 Pat Name: MARTY OMALLEY Department: [facility] Room: Gender: F Emblem Drawer In: [id number] : 1955 Requested By: DIONNE PUGA Order Number: [id number] Reading MD: Arturo Luu Measurements Intervals [place] Rate: 59 P: 0 CT: 87 QRS: -36 QRSD: 103 T: 20 QT: 450 QTc: 446 Interpretive Statements Sinus rhythm Left axis deviation Probable anteroseptal infarct, old Compared to ECG 04/17/2024 08:46:22 Left-axis deviation now present Myocardial infarct finding now present First degree AV block no longer present Left ventricular hypertrophy no longer present Electronically Signed On 04-18-2024 20:49:38 [employer] ARTIST by Arturo Luu Please click the below link to view image of tracing.
[2024-04-18 05:25] LABS: BASOPHILS # (AUTO) 0.07 K/uL (0.00-0.20); BASOPHILS % (AUTO) 0.9 % (0.0-5.0); EOSINOPHILS # (AUTO) 0.27 K/uL (0.00-0.70); EOSINOPHILS % (AUTO) 3.4 % (0.0-8.0); HEMATOCRIT 34.2 % (36-48); IMMATURE GRANULOCYTE ABSOLUTE 0.12 K/uL (0-1); LYMPHOCYTES # (AUTO) 2.5 K/uL (1.0-4.8); LYMPHOCYTES % (AUTO) 31.6 % (21.0-51.0); MEAN CORPUSCULAR HEMOGLOBIN 29.7 pg (27.0-33.0); MEAN CORPUSCULAR HGB CONC 33.9 g/dL (32.0-36.0); MEAN CORPUSCULAR VOLUME 87.5 fL (79-99); MONOCYTES # (AUTO) 0.7 K/uL (0.1-1.0); MONOCYTES % (AUTO) 8.2 % (3.0-13.0); NEUTROPHILS # (AUTO) 4.4 K/uL (1.8-7.7); NEUTROPHILS % (AUTO) 54.4 % (40.0-77.0); PLATELET COUNT (AUTO) 251 K/uL (130-400); RED BLOOD CELL COUNT(AUTO) 3.91 MIL/uL (4.00-5.50); RED CELL DISTRIBUTION WIDTH 13.3 % (11.0-15.5); WHITE BLOOD COUNT (AUTO) 8.1 K/uL (4.8-10.8)
[2024-04-18 05:33] LABS: APPEARANCE,URINE CLOUDY (CLEAR); BILIRUBIN,URINE NEGATIVE (NEGATIVE); COLOR,URINE YELLOW (YELLOW); GLUCOSE, URINE (UA) NEGATIVE (NEGATIVE); KETONES,URINE NEGATIVE (NEGATIVE); LEUKOCYTE ESTERASE ,URINE 500 Leu/uL (NEGATIVE); NITRATE,URINE NEGATIVE (NEGATIVE); OCCULT BLOOD,URINE NEGATIVE (NEGATIVE); PROTEIN,URINE 20 mg/dL (NEGATIVE); UROBILINOGEN,URINE 0.2 mg/dL (0.2-1.0)
[2024-04-18 05:36] LABS: ADD UA MICROSCOPIC YES
[2024-04-18 05:38] LABS: BACTERIA,URINE MANY /HPF (None Seen); MUCUS,URINE RARE LPF (None Seen); SQUAMOUS EPITHELIAL CELL,UR MANY /HPF (0-2); WBC CLUMP FEW /HPF (0-1)
[2024-04-18 05:39] LABS: POTASSIUM 4.1 mmol/L (3.5-5.1)
[2024-04-18 05:40] LABS: SARS-CoV-2, RNA, NAAT NEGATIVE SARS CoV-2 (NEGATIVE)
[2024-04-18 05:41] LABS: INR 0.97 (0.85-1.15); PROTHROMBIN TIME 10.5 SEC (9.6-11.6)
[2024-04-18 05:45] LABS: B-TYPE NATRIURETIC PEPTIDE 11 pg/mL (0-100)
[2024-04-18 05:51] VITALS: TEMP 97.8
[2024-04-18] MEDS ORDERED: CEPH500B PO (06:07)
[2024-04-18] MEDS: cefTRIAXone 1G VIAL IVPB ONE (06:30)
--- NOTE | 2024-04-18 06:41 | NUR ---
PT SUGAR 56. WILL GIVE PATIENT A SANDWICH TO EAT AND SOME APPLE JUICE. WILL RECHECK SUGAR AFTER 15 MINUTES .
[2024-04-18 08:28] VITALS: BP 120/59; PULSE 60; RESP 16; O2SAT 97
[2024-04-18] MEDS: DEXTROSE 50%-WATER 50 ML DISP.SYRIN IV ONE (08:28)
--- NOTE | 2024-04-18 09:50 | HMCIMG ---
PORTABLE CHEST RADIOGRAPH INDICATION: sob COMPARISON: 04/17/2024 FINDINGS: Heart size is normal. The pulmonary vascularity and kayla appear normal. No abnormal pulmonary parenchymal opacity or consolidation identified. No significant pleural effusion noted. No pneumothorax detected. IMPRESSION: No radiographic evidence for any acute cardiopulmonary process.
== END 2024-04-18 08:30 | disposition home or self-care (01) ==
LOC: EDH 04:37
DX: N39.0 Urinary tract infection, site not specified (principal); E11.51 Type 2 diabetes mellitus with diabetic peripheral angiopathy without gangrene; E78.00 Pure hypercholesterolemia, unspecified; I10 Essential (primary) hypertension; I25.10 Atherosclerotic heart disease of native coronary artery without angina pectoris; I25.2 Old myocardial infarction; Z20.822 Contact with and (suspected) exposure to COVID-19; Z79.02 Long term (current) use of antithrombotics/antiplatelets; Z79.82 Long term (current) use of aspirin; Z79.899 Other long term (current) drug therapy; Z95.5 Presence of coronary angioplasty implant and graft
CPT/HCPCS: 99285; 96365; 71045; 87635; 96366; 82550; 83735; 84484; 80048; 83880; 85025; 85610; 87086; 82948 ×3; 81001; 36415; 93005; J0696

== ENCOUNTER 2024-05-29 23:38 | Observation (INO) | payer OTHER, MEDICARE ==
[~2024-05-29] VITALS: Ht 160 cm; Wt 106.0 kg
[~2024-05-29 23:38] MED LIST changes: -BUDE10.7 IH; -EZET10TA48 PO; -LISI5TAB21 PO; -ROSU40TA88 PO
--- NOTE | 2024-05-30 00:19 | NUR ---
PATIENT IN RESTROOM TRYING TO OBTAIN URINE SAMPLE.
[2024-05-30] MEDS: ondanSETRON 4MG INJ IVP ONE (00:29)
[2024-05-30 00:31] LABS: BASOPHILS # (AUTO) 0.06 K/uL (0.00-0.20); BASOPHILS % (AUTO) 0.8 % (0.0-5.0); EOSINOPHILS # (AUTO) 0.31 K/uL (0.00-0.70); IMMATURE GRANULOCYTE ABSOLUTE 0.05 K/uL (0-1); LYMPHOCYTES # (AUTO) 2.8 K/uL (1.0-4.8); LYMPHOCYTES % (AUTO) 35.6 % (21.0-51.0); MEAN CORPUSCULAR HEMOGLOBIN 29.6 pg (27.0-33.0); MEAN CORPUSCULAR HGB CONC 33.3 g/dL (32.0-36.0); MEAN CORPUSCULAR VOLUME 88.7 fL (79-99); MONOCYTES # (AUTO) 0.9 K/uL (0.1-1.0); MONOCYTES % (AUTO) 11.9 % (3.0-13.0); NEUTROPHILS # (AUTO) 3.7 K/uL (1.8-7.7); NEUTROPHILS % (AUTO) 47.1 % (40.0-77.0); PLATELET COUNT (AUTO) 202 K/uL (130-400); RED BLOOD CELL COUNT(AUTO) 4.06 MIL/uL (4.00-5.50); RED CELL DISTRIBUTION WIDTH 12.8 % (11.0-15.5); WHITE BLOOD COUNT (AUTO) 7.8 K/uL (4.8-10.8)
[2024-05-30 00:40] LABS: APPEARANCE,URINE CLEAR (CLEAR); BILIRUBIN,URINE NEGATIVE (NEGATIVE); COLOR,URINE LIGHT-YELLOW (YELLOW); GLUCOSE, URINE (UA) NEGATIVE (NEGATIVE); KETONES,URINE NEGATIVE (NEGATIVE); LEUKOCYTE ESTERASE ,URINE 250 Leu/uL (NEGATIVE); NITRATE,URINE NEGATIVE (NEGATIVE); OCCULT BLOOD,URINE NEGATIVE (NEGATIVE); PROTEIN,URINE NEGATIVE (NEGATIVE); UROBILINOGEN,URINE 0.2 mg/dL (0.2-1.0)
[2024-05-30 00:41] LABS: ADD UA MICROSCOPIC YES
[2024-05-30 00:42] LABS: CREATININE 0.7 mg/dL (0.5-1.0); POTASSIUM 4.3 mmol/L (3.5-5.1)
[2024-05-30 00:43] LABS: BACTERIA,URINE MOD /HPF (None Seen); MUCUS,URINE RARE LPF (None Seen); SQUAMOUS EPITHELIAL CELL,UR FEW /HPF (0-2); WBC,URINE 26-50 /HPF (0-1)
--- NOTE | 2024-05-30 01:16 | ERN ---
ED Note History of Present Illness Stated Complaint: C/O ABD PAIN, NAUSEA,DIZZYNESS,WEAKNESS Chief Complaint: Abdominal Pain Time Seen by MD: 00:02 Dictation: This is a 68-year-old female who is morbidly obese multiple medical problems apparently went to the sleep lab to pursue a sleep study today. She did not feel well she had some nausea dizziness and felt extremely weak. She also reported cough for the past few days and coughing of small amounts of mucopurulent sputum. She is unable to expectorate. She also reports wheezing and shortness of breath. Given this they aborted the sleep study and sent her here she denied any fever chills or rigors. No vomitings diarrhea hematemesis or melena but she does report vague abdominal discomfort and nausea. Temperature 98.1 pulse 68 respirations 20 blood pressure 167/83 with a pulse oximetry of 98%. Her chronic medical problems include COPD, diabetes mellitus, hypertension, hypercholesterolemia, coronary artery disease status post stent placements, peripheral arterial disease and stent in her legs She used to be a heavy smoker in the past and stated that for the past 1 year when she had an CA she quit smoking. Denied any alcohol at this time. Allergies: Coded Allergies: No Known Drug Allergies (Verified Allergy, Unknown, 08/26/15) Home Meds Active Scripts Cephalexin Monohydrate (Keflex) 500 Mg Cap, 1 CAP PO TID for 10 Days, #30 CAP 0 Refills Prov:DIONNE PUGA MD 04/18/24 Meloxicam (Meloxicam) 15 Mg Tablet, 15 MG PO DAILY PRN for PAIN for 10 Days, #10 TAB Prov:DEVIN LEONE DO 03/31/24 Gabapentin (Gabapentin) 100 Mg Capsule, 1 CAP PO TID for 30 Days, #90 CAP 0 Refills Prov:DEVIN LEONE DO 03/31/24 Reported Medications Aspirin (ASPIRIN 81 MG ECTAB) 81 Mg Ectab, 81 MG PO DAILY, TAB.EC 01/25/24 Metoprolol Succinate (Metoprolol Succinate) 25 Mg Tab.er.24h, 25 MG PO HS, TAB 01/01/24 Insulin Degludec (Tresiba Flextouch U-200) 200 Unit/Ml (3 Ml) Insuln.pen, 60 UNIT SQ HS, SYRINGE 01/01/24 Insulin Degludec (Tresiba Flextouch U-200) 200 Unit/Ml (3 Ml) Insuln.pen, 50 UNIT SQ AM, SYRINGE 01/01/24 Nitroglycerin (Nitroglycerin) 0.4 Mg Tab.subl, 0.4 MG SL Q5MIN PRN for CHEST PAIN, #3 TAB.SL 08/28/23 Ticagrelor (Brilinta) 90 Mg Tablet, 90 MG PO BID, TAB 08/28/23 Past Medical History Past Medical History: CAD, COPD, Diabetes-Type II, High Cholesterol, Hypertension, Vascular Disease Additional Past Medical Hx: PAD/PVD Surgical History: Other Surgical History Other: CARDIAC STENTS Family History: Negative Social History: Smokers (Previous heavy smoker), ETOH (Previous social drinker), Negative, Other History: Not Applicable RN Note Reviewed/Agreed w/PFSH: Yes Review of System Dictation Constitutional: Negative for fever,chills, and weight loss positive for generalized weakness Eyes: Negative for injury, pain,redness, and discharge ENT: Negative for injury,pain or swelling Cardiovascular: Negative for chest pain, palpitations, and edema Respiratory: Positive for shortness of breath, cough, and wheezing, Abdomen/GI: Positive for abdominal pain, nausea, denies vomiting, diarrhea, and constipation Back: Negative for injury and pain : Negative for injury, bleeding and discharge MS/Extremity: Negative for injury and deformity Skin: Negative for rash, and discoloration Neuro: Negative for headache, weakness, numbness, tingling, and seizure Psych: Negative for suicide ideation, homicidal ideation, and hallucinations Initial Vital Sign VS Vital Signs Date Time Temp Pulse Resp B/P (MAP) Pulse Ox O2 Delivery O2 Flow Rate FiO2 05/29/24 23:41 98.1 68 20 167/83 99 Room Air 05/30/24 00:15 0 21 Physical Exam Dictation General: awake, alert, NAD morbidly obese female Head/Face: Normocephalic, atraumatic Eyes: PERRL, EOMI, vision at baseline ENT: oral cavity clear, TMs clear, no signs of infection, poor dentition, Mallampati score 4 Neck: Trachea midline, supple, no nuchal rigidity Cardiovascular: RRR, normal S1/S2, No MRGs, no JVD Respiratory: Prolonged expiratory phase with coarse rhonchi and occasional end expiratory wheeze to forced expiratory maneuver Abdomen: Soft, non-tender, non-distended, normal bowel sounds, no guarding or rebound. Skin: Warm, dry, normal turgor, no rash MS/Extremity: Pulses equal, no cyanosis, neurovascular intact, FROM Neuro: COAx4, GCS 15, strength 5/5, CN 2-12 intact, normal cerebellar exam, normal gait, Psych: Normal behavior, mood, and affect normal Extremities-trace edema without any palpable cords, Homans sign is negative Results (Laboratory/Radiology) Laboratory/Radiology Laboratory Tests Test 05/30/24 00:11 05/30/24 00:22 05/30/24 01:18 05/30/24 01:53 White Blood Count 7.8 K/uL (4.8-10.8) Red Blood Count 4.06 MIL/uL (4.00-5.50) Hemoglobin 12.0 g/dL (12.0-16.0) Hematocrit 36.0 % (36-48) Mean Corpuscular Volume 88.7 fL (79-99) Mean Corpuscular Hemoglobin 29.6 pg (27.0-33.0) Mean Corpuscular Hemoglobin Concent 33.3 g/dL (32.0-36.0) Red Cell Distribution Width 12.8 % (11.0-15.5) Platelet Count 202 K/uL (130-400) Mean Platelet Volume 10.4 fL (7.5-10.5) Immature Granulocyte % (Auto) 0.6 % (0-1) Neutrophils (%) (Auto) 47.1 % (40.0-77.0) Lymphocytes (%) (Auto) 35.6 % (21.0-51.0) Monocytes (%) (Auto) 11.9 % (3.0-13.0) Eosinophils (%) (Auto) 4.0 % (0.0-8.0) Basophils (%) (Auto) 0.8 % (0.0-5.0) Neutrophils # (Auto) 3.7 K/uL (1.8-7.7) Lymphocytes # (Auto) 2.8 K/uL (1.0-4.8) Monocytes # (Auto) 0.9 K/uL (0.1-1.0) Eosinophils # (Auto) 0.31 K/uL (0.00-0.70) Basophils # (Auto) 0.06 K/uL (0.00-0.20) Absolute Immature Granulocyte (auto 0.05 K/uL (0-1) Nucleated Red Blood Cells 0.0 % (0.0-0.19) Sodium Level 146 mmol/L (136-145) H Potassium Level 4.3 mmol/L (3.5-5.1) Chloride Level 109 mmol/L (101-111) Carbon Dioxide Level 31 mmol/L (21-32) Blood Urea Nitrogen 23 mg/dL (7-18) H Creatinine 0.7 mg/dL (0.5-1.0) Glomerular Filtration Rate Calc 95 mL/min (>90) Random Glucose 65 mg/dL (70-105) L Total Calcium 8.8 mg/dL (8.5-10.1) Lipase 56 U/L (16-77) Urine Color LIGHT-YELLOW (YELLOW) Urine Appearance CLEAR (CLEAR) Urine pH 6.0 (5.0-8.0) Urine Specific Farrell 1.024 (1.001-1.031) Urine Protein NEGATIVE mg/dL (NEGATIVE) Urine Glucose (UA) NEGATIVE mg/dL (NEGATIVE) Urine Ketones NEGATIVE mg/dL (NEGATIVE) Urine Occult Blood NEGATIVE (NEGATIVE) Urine Nitrate NEGATIVE (NEGATIVE) Urine Bilirubin NEGATIVE mg/dL (NEGATIVE) Urine Urobilinogen 0.2 mg/dL (0.2-1.0) Urine Leukocyte Esterase 250 Sissy/uL (NEGATIVE) H Urine RBC 2-5 /HPF (0-1) H Urine WBC 26-50 /HPF (0-1) H Urine Squamous Epithelial Cells FEW /HPF (0-2) Urine Bacteria MOD /HPF (None Seen) Whole Blood Glucose 59 MG/DL (70-110) L 143 MG/DL (70-110) #H Bedside Glucose Comment Notified Nurse Labs Reviewed?: Yes ED Course ED Course Orders Procedure Category Date Status Time Cbc With Differential LAB 05/30/24 Complete 00:04 Basic Metabolic Panel LAB 05/30/24 Complete 00:04 Lipase LAB 05/30/24 Complete 00:04 Ondansetron 4mg Inj PHA 05/30/24 Complete (Zofran 4mg Inj) 00:30 Urinalysis Profile LAB 05/30/24 Complete 00:26 Culture Urine NADYA 05/30/24 In Process 00:41 Chest 1vw RAD 05/30/24 Resulted 00:48 Ipratropium/Albuterol PHA 05/30/24 Complete Neb (Duoneb) 01:00 Methylprednisolone PHA 05/30/24 Complete Succ 40mg (Solu-Medro 01:00 Ceftriaxone 1g Vial PHA 05/30/24 Complete (Rocephine 1g Inj) 01:30 Random Accucheck At CPOE 05/30/24 Transmitted Bedside 01:14 Dextrose 50%-Water PHA 05/30/24 Complete (D50w) 01:30 0.9% Nacl 500ml PHA 05/30/24 Complete Iv.Soln (Ns 500ml 01:30 Ipratropium/Albuterol PHA 05/30/24 Complete Neb (Duoneb) 01:50 Edm Admit Bridge Order ADM 05/30/24 Transmitted 02:43 Admit Orders ADM 05/30/24 Transmitted 02:43 Vital Signs(Adult CPOE 05/30/24 Transmitted Hospitalist) 02:46 Nurse To Enter Home CPOE 05/30/24 Transmitted Medication 02:46 Admit Orders ADM 05/30/24 Transmitted 02:46 1/2 Ns 1000ml (0.45% PHA 05/30/24 In Process Nacl 1000ml) 03:00 Heart Healthy Diet DIET 05/30/24 Transmitted Breakfast Ceftriaxone 1g Vial PHA 05/30/24 In Process (Rocephine 1g Inj) 03:00 Ipratropium/Albuterol PHA 05/30/24 In Process Neb (Duoneb) 09:00 Ipratropium/Albuterol PHA 05/30/24 In Process Neb (Duoneb) 03:00 Initiate TK 05/30/24 In Process Hyperglycemia Protoco 02:46 Insulin Regular, PHA 05/30/24 In Process Human 3ml (Humulin R 07:30 Enoxaparin Sodium 40 PHA 05/30/24 Complete Mg/0.4 Ml (Lovenox) 03:00 Methylprednisolone PHA 05/30/24 Complete Succ 40mg (Solu-Medro 03:00 Cbc With Differential LAB 05/30/24 Logged 04:00 Comprehensive LAB 05/31/24 Verified Metabolic Panel 04:00 Current Medications Medications (Trade) Dose Ordered Sig/Kya Route PRN Reason Start Time Stop Time Status Last Admin Dose Admin Albuterol (DUOneb) 1 UDVIAL ONCE ONCE IH 05/30/24 01:00 05/30/24 01:01 DC 05/30/24 02:01 Albuterol (DUOneb) 1 udvial STK-MED ONCE IH 05/30/24 01:50 05/30/24 01:56 DC Ceftriaxone Sodium (ROCEphine 1G INJ) 1 gm ONCE ONCE IVPB 05/30/24 01:30 05/30/24 01:31 DC 05/30/24 01:36 Dextrose (D50w) 50 ml ONCE ONCE IV 05/30/24 01:30 05/30/24 01:31 DC 05/30/24 01:36 Methylprednisolone Sodium Succinate (Solu-medROL 40MG) 40 mg ONCE ONCE IVP 05/30/24 01:00 05/30/24 01:01 DC 05/30/24 01:36 Ondansetron HCl (zoFRAN 4MG INJ) 4 mg ONCE ONCE IVP 05/30/24 00:30 05/30/24 00:31 DC 05/30/24 00:29 Sodium Chloride 500 ml @ 0 mls/hr ONCE ONCE IV 05/30/24 01:30 05/30/24 01:31 DC 05/30/24 01:36 Vital Signs Date Time Temp Pulse Resp B/P (MAP) Pulse Ox O2 Delivery O2 Flow Rate FiO2 05/30/24 02:01 63 18 05/30/24 00:15 98.2 65 20 152/68 98 Room Air* 0 21 05/29/24 23:41 98.1 68 20 167/83 99 Room Air We will perform diagnostic labs, advanced imaging and administer medications according to the patient's complaint. Once the results are available, will review and personally interpreted the labs to rule out any acute life- threatening emergency the trach require immediate intervention and treatment. I will then re-evaluate the patient after treatment and diagnostic exams have return to determine whether the patient requires any further testing, can safely be discharged home or need further admission to hospital for additional treatment and evaluation. Labs reviewed CBC within normal limits BNP 7 is significant for a sodium of 146 bicarb of 31 BUN and creatinine are 23 and 0.7. Chest x-ray did not show any acute focal infiltrate., blood glucose was 65 and urinalysis was significant for positive leuko esterase too numerous to count white cells I recommended admission to the hospital for management of all the problems. She was agreeable Patient was accepted by for admission and further management Medical Decision Making MDM MDM: Differential diagnosis: COPD with acute exacerbation, hypoglycemia, UTI, deh ydration Rationale: Tests considered and ordered secondary to shared decision making include: labs, ECG and radiology Previous outside records reviewed: Old ER visits. Risk of complication and/or morbidity or mortality of patient management: None Medications-Per medication reconciliation Need for hospitalization: Patient does meet criteria for hospitalization. Need for emergency major/minor surgery: No There are no social concerns with this patient. Prescription drug management Prescriptions will include symptomatic care Patient's prior external medical records from other ER visits were reviewed by me as indicated. Prior testing and results from previous visits were reviewed. Prior tests were taken into account with medical decision making and resource utilization, independent historian/historians were used to obtain complete medical history. I independently interpreted the test that were performed, results were reviewed by me and considered findings on radiology if ordered. Medical management and examination interpretation discussions were had by me with other qualified healthcare professionals as indicated for the patient's c are. Problem List Problem List: (1) COPD with acute exacerbation (2) Hypoglycemia (3) Dehydration (4) Urinary tract infection (5) Hypertension (6) PVD (peripheral vascular disease) (7) Severe peripheral arterial disease (8) Weakness DX & DISP Disposition: Inpatient Decision to Admit Time: 01:11 Departure Impression: Primary Impression: COPD with acute exacerbation Additional Impressions: Hypoglycemia, Dehydration, Urinary tract infection, Weakness, Severe peripheral arterial disease Condition: Stable Additional Instructions: Patient was informed of all the diagnostic labs and procedures conducted in the emergency room today and demonstrated understanding of the results. I personally reviewed and interpreted all the diagnostic exams performed in the ER today. The patient will be admitted to the hospital for further treatment and evaluation. Disposition-admit to facility Condition-stable/guarded Course-uncertain at this time Pain status-decreased Assessment-exam unchanged Admission Certification- I certify that the patients status is appropriate and is based on my best clinical judgment and the patient's condition as documented in the medical records Referrals: LISA JENKINS MD (PCP) EBEN BIANCHI MD May 30, 2024 01:16
--- NOTE | 2024-05-30 01:27 | HMCIMG ---
CHEST 1VW HISTORY: Cough and congestion COMPARISON: 04/18/2024 FINDINGS: A frontal projection of the chest was obtained. Mild bilateral pulmonary infiltrates are seen may be related to mild pulmonary vascular congestion with possible superimposed pneumonitis. The heart is borderline enlarged. Degenerative changes are seen. The study is limited due to patient's large body habitus. IMPRESSION: 1. Mild bilateral pulmonary infiltrates are seen may be related to mild pulmonary vascular congestion with possible superimposed pneumonitis.
[2024-05-30] MEDS: Solu-medROL 40MG VIAL IVP ONE ×2 (01:36→03:00)
[2024-05-30] MEDS: cefTRIAXone 1G VIAL IVPB ONE (01:36)
[2024-05-30] MEDS: DEXTROSE 50%-WATER 50 ML DISP.SYRIN IV ONE (01:36)
[2024-05-30] MEDS: 0.9% NACL 500ML IV.SOLN 500 ML IV ONE (01:36)
[2024-05-30 02:01] VITALS: PULSE 63; RESP 18
[2024-05-30] MEDS: IpraTROPium/alBUTERol SULFATE 3 ML SOLUTION IH ONE ×2 (02:01)
[2024-05-30] MEDS ORDERED: IpraTROPium/alBUTERol SULFATE 3 ML SOLUTION IH PRN (03:00)
[2024-05-30] MEDS: cefTRIAXone 1G VIAL IVPB SCH (03:00)
[2024-05-30] MEDS ORDERED: ENOXAPARIN SODIUM 40 MG/0.4 ML SYRINGE SQ ONE (03:00)
[2024-05-30 03:18] VITALS: PULSE 73; RESP 18; O2SAT 98
[2024-05-30] MEDS: 1/2 NS 1000ML 1,000 ML IV SCH (06:09)
--- NOTE | 2024-05-30 06:14 | NUR ---
PENDING HOME MEDICATIONS LIST, PATIENT ADVISED TO HAVE FAMILY MEMBER BRING MEDS WHEN AVAILABLE, PATIENT VERBALIZED UNDERSTANDING
[2024-05-30] MEDS: IpraTROPium/alBUTERol SULFATE 3 ML SOLUTION IH SCH ×2 (06:42→14:51)
[2024-05-30 06:43] VITALS: PULSE 71; RESP 18; O2SAT 97
[2024-05-30 06:51] LABS: BASOPHILS # (AUTO) 0.02 K/uL (0.00-0.20); BASOPHILS % (AUTO) 0.3 % (0.0-5.0); EOSINOPHILS # (AUTO) 0.01 K/uL (0.00-0.70); EOSINOPHILS % (AUTO) 0.1 % (0.0-8.0); HEMATOCRIT 34.7 % (36-48); IMMATURE GRANULOCYTE ABSOLUTE 0.05 K/uL (0-1); LYMPHOCYTES # (AUTO) 0.9 K/uL (1.0-4.8); LYMPHOCYTES % (AUTO) 12.4 % (21.0-51.0); MEAN CORPUSCULAR HEMOGLOBIN 28.9 pg (27.0-33.0); MEAN CORPUSCULAR HGB CONC 32.9 g/dL (32.0-36.0); MEAN CORPUSCULAR VOLUME 87.8 fL (79-99); MONOCYTES # (AUTO) 0.1 K/uL (0.1-1.0); NEUTROPHILS # (AUTO) 5.8 K/uL (1.8-7.7); NEUTROPHILS % (AUTO) 84.5 % (40.0-77.0); PLATELET COUNT (AUTO) 214 K/uL (130-400); RED BLOOD CELL COUNT(AUTO) 3.95 MIL/uL (4.00-5.50); RED CELL DISTRIBUTION WIDTH 12.8 % (11.0-15.5); WHITE BLOOD COUNT (AUTO) 6.9 K/uL (4.8-10.8)
[2024-05-30] MEDS: INSULIN humuLIN R 100 UNIT/ML 3ML SQ SCH (07:30)
[2024-05-30] MEDS ORDERED: IpraTROPium/alBUTERol SULFATE 3 ML SOLUTION IH SCH (09:00)
[2024-05-30] MEDS: Solu-medROL 40MG VIAL IVP SCH (09:28)
[2024-05-30] MEDS: ENOXAPARIN SODIUM 40 MG/0.4 ML SYRINGE SQ SCH (09:28)
[2024-05-30] MEDS ORDERED: BUDE10.7 IH ×2 (13:51)
[2024-05-30] MEDS ORDERED: ROSU40TA88 PO ×2 (13:51)
[2024-05-30] MEDS ORDERED: EZET10TA48 PO ×2 (13:51)
[2024-05-30] MEDS ORDERED: LISI5TAB21 PO ×2 (13:51)
[2024-05-30 14:51] VITALS: PULSE 71; RESP 18
[2024-05-30 19:20] VITALS: PULSE 78; RESP 19
--- NOTE | 2024-05-30 23:24 | HP ---
HISTORY AND PHYSICAL NOTE DATE OF CONSULTATION: 05/30/24 REASON FOR CONSULTATION: Shortness of breath HISTORY OF PRESENT ILLNESS: This is a 68-year-old female who is morbidly obese multiple medical problems apparently went to the sleep lab to pursue a sleep study today. She did not feel well she had some nausea dizziness and felt extremely weak. She also reported cough for the past few days and coughing of small amounts of mucopurule nt sputum. She is unable to expectorate. She also reports wheezing and shortness of breath. Given this they aborted the sleep study and sent her here she denied any fever chills or rigors. No vomitings diarrhea hematemesis or melena but she does report vague abdominal discomfort and nausea. Temperature 98.1 pulse 68 respirations 20 blood pressure 167/83 with a pulse oximetry of 98%. Her chronic medical problems include COPD, diabetes mellitus, hypertension, hypercholesterolemia, coronary artery disease status post stent placements, peripheral arterial disease and stent in her legs She used to be a heavy smoker in the past and stated that for the past 1 year when she had an PR she quit smoking. Denied any alcohol at this time. Allergies: Coded Allergies: No Known Drug Allergies (Verified Allergy, Unknown, 08/26/15) Home Meds Active Scripts Cephalexin Monohydrate (Keflex) 500 Mg Cap, 1 CAP PO TID for 10 Days, #30 CAP 0 Refills Prov:DIONNE PUGA MD 04/18/24 Meloxicam (Meloxicam) 15 Mg Tablet, 15 MG PO DAILY PRN for PAIN for 10 Days, #10 TAB Prov:DEVIN LEONE DO 03/31/24 Gabapentin (Gabapentin) 100 Mg Capsule, 1 CAP PO TID for 30 Days, #90 CAP 0 Refills Prov:DEVIN LEONE DO 03/31/24 Reported Medications Aspirin (ASPIRIN 81 MG ECTAB) 81 Mg Ectab, 81 MG PO DAILY, TAB.EC 01/25/24 Metoprolol Succinate (Metoprolol Succinate) 25 Mg Tab.er.24h, 25 MG PO HS, TAB 01/01/24 Insulin Degludec (Tresiba Flextouch U-200) 200 Unit/Ml (3 Ml) Insuln.pen, 60 UNIT SQ HS, SYRINGE 01/01/24 Insulin Degludec (Tresiba Flextouch U-200) 200 Unit/Ml (3 Ml) Insuln.pen, 50 UNIT SQ AM, SYRINGE 01/01/24 Nitroglycerin (Nitroglycerin) 0.4 Mg Tab.subl, 0.4 MG SL Q5MIN PRN for CHEST PAIN, #3 TAB.SL 08/28/23 Ticagrelor (Brilinta) 90 Mg Tablet, 90 MG PO BID, TAB 08/28/23 Past Medical History Past Medical History: CAD, COPD, Diabetes-Type II, High Cholesterol, Hypertension, Vascular Disease Additional Past Medical Hx: PAD/PVD Surgical History: Other Surgical History Other: CARDIAC STENTS Family History: Negative Social History: Smokers (Previous heavy smoker), ETOH (Previous social drinker), Negative, Other History: Not Applicable RN Note Reviewed/Agreed w/PFSH: Yes Review of System Dictation Constitutional: Negative for fever,chills, and weight loss positive for gen eralized weakness Eyes: Negative for injury, pain,redness, and discharge ENT: Negative for injury,pain or swelling Cardiovascular: Negative for chest pain, palpitations, and edema Respiratory: Positive for shortness of breath, cough, and wheezing, Abdomen/GI: Positive for abdominal pain, nausea, denies vomiting, diarrhea, and constipation Back: Negative for injury and pain : Negative for injury, bleeding and discharge MS/Extremity: Negative for injury and deformity Skin: Negative for rash, and discoloration Neuro: Negative for headache, weakness, numbness, tingling, and seizure Psych: Negative for suicide ideation, homicidal ideation, and hallucinations Initial Vital Sign VS ALLERGIES: Coded Allergies: No Known Drug Allergies (Verified Allergy, Unknown, 08/26/15) HOME MEDS: Active Scripts Cephalexin Monohydrate (Keflex) 500 Mg Cap, 1 CAP PO TID for 10 Days, #30 CAP 0 Refills Prov:DIONNE PUGA MD 04/18/24 Meloxicam (Meloxicam) 15 Mg Tablet, 15 MG PO DAILY PRN for PAIN for 10 Days, #10 TAB Prov:DEVIN LEONE DO 03/31/24 Gabapentin (Gabapentin) 100 Mg Capsule, 1 CAP PO TID for 30 Days, #90 CAP 0 Refills Prov:DEVIN LEONE DO 03/31/24 Reported Medications Budesonide/Glycopyr/Formoterol (Breztri Aerosphere Inhaler) 160 Mcg-9 Mcg-4.8 Mcg/Actuation Hfa.aer.ad, 2 PUFF IH BID for 30 Days, #10.7 GM 0 Refills 05/30/24 Lisinopril (Lisinopril) 5 Mg Tablet, 1 TAB PO DAILY for 30 Days, #30 TAB 0 Refills 05/30/24 Rosuvastatin Calcium (Rosuvastatin Calcium) 40 Mg Tablet, 1 TAB PO DAILY for high cholesterol for 30 Days, #30 TAB 0 Refills 05/30/24 Ezetimibe (Ezetimibe) 10 Mg Tablet, 1 TAB PO DAILY for 30 Days, #30 TAB 0 Refills 05/30/24 Aspirin (ASPIRIN 81 MG ECTAB) 81 Mg Ectab, 81 MG PO DAILY, TAB.EC 01/25/24 Metoprolol Succinate (Metoprolol Succinate) 25 Mg Tab.er.24h, 25 MG PO HS, TAB 01/01/24 Insulin Degludec (Tresiba Flextouch U-200) 200 Unit/Ml (3 Ml) Insuln.pen, 60 UNIT SQ HS, SYRINGE 01/01/24 Insulin Degludec (Tresiba Flextouch U-200) 200 Unit/Ml (3 Ml) Insuln.pen, 50 UNIT SQ AM, SYRINGE 01/01/24 Nitroglycerin (Nitroglycerin) 0.4 Mg Tab.subl, 0.4 MG SL Q5MIN PRN for CHEST PAIN, #3 TAB.SL 08/28/23 Ticagrelor (Brilinta) 90 Mg Tablet, 90 MG PO BID, TAB 08/28/23 INPATIENT MEDS: Current Medications Medications Dose Ordered Sig/Kya Start Time Stop Time Status Last Admin Sodium Chloride 1,000 ml @ 100 mls/hr Q10H 05/30/24 03:00 06/29/24 02:59 05/30/24 13:43 Ceftriaxone Sodium 1 gm Q24H 05/30/24 03:00 06/09/24 02:59 Albuterol 1 UDVIAL Q4H PRN 05/30/24 03:00 06/29/24 02:59 Insulin Human Regular INSULIN SLIDING SCAL... ACHS 05/30/24 07:30 06/29/24 07:29 05/30/24 19:47 Enoxaparin Sodium 40 mg DAILY 05/30/24 09:00 06/29/24 08:59 05/30/24 09:28 Methylprednisolone Sodium Succinate 40 mg BID 05/30/24 09:00 06/29/24 08:59 05/30/24 19:36 Albuterol 1 udcareyal QIDRESP 05/30/24 14:00 06/29/24 13:59 05/30/24 19:20 VITAL SIGNS Vital Signs Date Time Temp Pulse Resp B/P (MAP) Pulse Ox O2 Delivery O2 Flow Rate FiO2 05/30/24 21:11 98.4 90 18 122/50 97 Room Air* 0 05/30/24 19:20 78 19 05/30/24 17:11 98.2 89 18 113/57 99 Room Air* 0 05/30/24 14:51 71 18 05/30/24 14:09 98.2 81 18 148/77 94 Room Air* 0 05/30/24 12:54 98.2 82 18 158/72 100 Room Air* 0 05/30/24 10:01 98.2 64 18 129/52 95 Room Air* 0 05/30/24 07:20 98.2 77 18 128/61 95 Room Air* 0 05/30/24 06:43 71 18 N/A Room Air 05/30/24 06:43 71 18 05/30/24 06:15 71 20 155/55 96 Room Air* 0 05/30/24 04:20 58 14 125/50 95 Room Air* 0 05/30/24 03:18 73 18 N/A Room Air 05/30/24 02:01 63 18 05/30/24 00:15 98.2 65 20 152/68 98 Room Air* 0 05/29/24 23:41 98.1 68 20 167/83 99 Room Air PHYSICAL EXAM Vital Signs Date Time Temp Pulse Resp B/P (MAP) Pulse Ox O2 Delivery O2 Flow Rate FiO2 05/29/24 23:41 98.1 68 20 167/83 99 Room Air 05/30/24 00:15 0 21 Physical Exam Dictation General: awake, alert, NAD morbidly obese female Head/Face: Normocephalic, atraumatic Eyes: PERRL, EOMI, vision at baseline ENT: oral cavity clear, TMs clear, no signs of infection, poor dentition, Mallampati score 4 Neck: Trachea midline, supple, no nuchal rigidity Cardiovascular: RRR, normal S1/S2, No MRGs, no JVD Respiratory: Prolonged expiratory phase with coarse rhonchi and occasional end expiratory wheeze to forced expiratory maneuver Abdomen: Soft, non-tender, non-distended, normal bowel sounds, no guarding or rebound. Skin: Warm, dry, normal turgor, no rash MS/Extremity: Pulses equal, no cyanosis, neurovascular intact, FROM Neuro: COAx4, GCS 15, strength 5/5, CN 2-12 intact, normal cerebellar exam, normal gait, Psych: Normal behavior, mood, and affect normal Extremities-trace edema without any palpable cords, Homans sign is negative LABORATORY RESULTS Laboratory Tests 05/30/24 00:11: White Blood Count 7.8, Red Blood Count 4.06, Hemoglobin 12.0, Hematocrit 36.0, Mean Corpuscular Volume 88.7, Mean Corpuscular Hemoglobin 29.6, Mean Corpuscular Hemoglobin Concent 33.3, Red Cell Distribution Width 12.8, Platelet Count 202, Mean Platelet Volume 10.4, Immature Granulocyte % (Auto) 0.6, Neutrophils (%) (Auto) 47.1, Lymphocytes (%) (Auto) 35.6, Monocytes (%) (Auto) 11.9, Eosinophils (%) (Auto) 4.0, Basophils (%) (Auto) 0.8, Neutrophils # (Auto) 3.7, Lymphocytes # (Auto) 2.8, Monocytes # (Auto) 0.9, Eosinophils # (Auto) 0.31, Basophils # (Auto) 0.06, Absolute Immature Granulocyte (auto 0.05, Nucleated Red Blood Cells 0.0, Sodium Level 146, Potassium Level 4.3, Chloride Level 109, Carbon Dioxide Level 31, Blood Urea Nitrogen 23, Creatinine 0.7, Glomerular Filtration Rate Calc 95, Random Glucose 65, Total Calcium 8.8, Lipase 56 05/30/24 00:22: Urine Color LIGHT-YELLOW, Urine Appearance CLEAR, Urine pH 6.0, Urine Specific [place] 1.024, Urine Protein NEGATIVE, Urine Glucose (UA) NEGATIVE, Urine Ketones NEGATIVE, Urine Occult Blood NEGATIVE, Urine Nitrate NEGATIVE, Urine Bilirubin NEGATIVE, Urine Urobilinogen 0.2, Urine Leukocyte Esterase 250, Urine RBC 2-5, Urine WBC 26-50, Urine Squamous Epithelial Cells FEW, Urine Bacteria MOD 05/30/24 01:18: Whole Blood Glucose 59 05/30/24 01:53: Whole Blood Glucose 143, Bedside Glucose Comment Notified Nurse 05/30/24 06:30: White Blood Count 6.9, Red Blood Count 3.95, Hemoglobin 11.4, Hematocrit 34.7, Mean Corpuscular Volume 87.8, Mean Corpuscular Hemoglobin 28.9, Mean Corpuscular Hemoglobin Concent 32.9, Red Cell Distribution Width 12.8, Platelet Count 214, Mean Platelet Volume 10.6, Immature Granulocyte % (Auto) 0.7, Neutrophils (%) (Auto) 84.5, Lymphocytes (%) (Auto) 12.4, Monocytes (%) (Auto) 2.0, Eosinophils (%) (Auto) 0.1, Basophils (%) (Auto) 0.3, Neutrophils # (Auto) 5.8, Lymphocytes # (Auto) 0.9, Monocytes # (Auto) 0.1, Eosinophils # (Auto) 0.01, Basophils # (Auto) 0.02, Absolute Immature Granulocyte (auto 0.05, Nucleated Red Blood Cells 0.0 05/30/24 07:42: Whole Blood Glucose 114 05/30/24 11:45: Whole Blood Glucose 255 05/30/24 16:01: Whole Blood Glucose 262 05/30/24 19:39: Whole Blood Glucose 355 Microbiology Date/Time Source Procedure Growth Status 05/30/24 00:22 Urine,Clean Catch - Final Complete PROBLEM LIST: (1) Uncontrolled diabetes mellitus (2) Chronic venous stasis ICD Codes: I87.8 - Other specified disorders of veins (3) Hyperglycemia ICD Codes: R73.9 - Hyperglycemia, unspecified (4) CHF (congestive heart failure) ICD Codes: I50.9 - Heart failure, unspecified (5) Diabetes mellitus with hyperglycemia ICD Codes: E11.65 - Type 2 diabetes mellitus with hyperglycemia (6) UTI (urinary tract infection) ICD Codes: N39.0 - Urinary tract infection, site not specified (7) COPD with acute exacerbation ICD Codes: J44.1 - Chronic obstructive pulmonary disease with (acute) exace rbation PLAN Start IV antibiotics steroids bronchodilators DVT prophylaxis and monitor VITO ZHAO MD May 30, 2024 23:24
[2024-05-31 01:30] VITALS: BP 143/60; PULSE 80; RESP 22; TEMP 97.6; O2SAT 96
[2024-05-31 03:48] VITALS: BP 149/69; PULSE 82; RESP 20; TEMP 98.1
[2024-05-31 06:11] LABS: ALBUMIN 3.2 g/dL (3.5-5.0); BILIRUBIN,TOTAL 0.3 mg/dL (0.2-1.0); CREATININE 0.8 mg/dL (0.5-1.0); POTASSIUM 4.8 mmol/L (3.5-5.1); TOTAL PROTEIN, SERUM 6.8 g/dL (6.0-8.3)
[2024-05-31 07:15] VITALS: RESP 18; O2SAT 97
[2024-05-31 07:16] VITALS: PULSE 77; RESP 18
[2024-05-31 07:57] VITALS: BP 130/50; PULSE 69; RESP 16; TEMP 97.4
[2024-05-31 08:12] VITALS: O2SAT 96
--- NOTE | 2024-05-31 11:00 | NUR ---
DISCHARGE PERIPHERAL IV DISCONTINUED. DISCHARGE INSTRUCTIONS AND MEDICATIONS PROVIDED TO PATIENT. PATIENT AWARE OF FOLLOW UP APPOINTMENTS AND MEDICATIONS BEING SENT TO PREFERRED PHARMACY. ALL QUESTIONS ANSWERED.
[2024-06-01] MEDS ORDERED: IpraTROPium/alBUTERol SULFATE 3 ML SOLUTION IH SCH (14:00)
== END 2024-05-31 11:12 | disposition home or self-care (01) ==
LOC: EDH 23:38 → EDHIP 05-30 02:46 → 3DH 05-31 00:54
PROVIDERS: ADMIT Internal Medicine; ATTEND Internal Medicine
DX: E11.65 Type 2 diabetes mellitus with hyperglycemia (principal); J44.1 Chronic obstructive pulmonary disease with (acute) exacerbation; I11.0 Hypertensive heart disease with heart failure; I50.9 Heart failure, unspecified; I87.8 Other specified disorders of veins; E11.649 Type 2 diabetes mellitus with hypoglycemia without coma; N39.0 Urinary tract infection, site not specified; I25.10 Atherosclerotic heart disease of native coronary artery without angina pectoris; E78.00 Pure hypercholesterolemia, unspecified; E86.0 Dehydration; Z87.891 Personal history of nicotine dependence; Z95.5 Presence of coronary angioplasty implant and graft; Z79.899 Other long term (current) drug therapy; Z98.890 Other specified postprocedural states
CPT/HCPCS: 96372 ×2; 96376 ×2; 96365; 96361 ×2; 96375; 99284; 80048; 83690; 85025 ×2; 87086 ×2; 87186; 82948 ×7; 81001; 36415 ×2; 71045; 94664; 96366; 80053; J1815 ×3; G0378 ×31; J7040; J7070; J0696 ×2; J2405 ×2; J2919 ×4; J1650 ×2; 94640

== ENCOUNTER → 2024-05-29 | Outpatient (CLI) | payer OTHER, MEDICARE ==
[~2024-05-29] MED LIST changes: +BUDE10.7 IH; +CEPH500B PO; +EZET10TA48 PO; +LISI5TAB21 PO; +ROSU40TA88 PO
[2024-05-29 21:09] VITALS: PULSE 66; RESP 12
[2024-05-29 21:30] VITALS: PULSE 62; RESP 18
[2024-05-29 22:02] VITALS: PULSE 65; RESP 14
[2024-05-29 22:33] VITALS: PULSE 64; RESP 22
[2024-05-29 23:07] VITALS: PULSE 61; RESP 20
[2024-05-29 23:22] VITALS: PULSE 62; RESP 18
== END | disposition home or self-care (01) ==
LOC: SLP 06:17
PROVIDERS: ATTEND Internal Medicine Cardiovascular Disease
DX: G47.30 Sleep apnea, unspecified (principal)
CPT/HCPCS: 95810

== ENCOUNTER 2024-08-31 11:41 | Emergency (ER) | payer OTHER, MEDICARE ==
[~2024-08-31] VITALS: Ht 165.1 cm; Wt 96.6 kg
[~2024-08-31 11:41] MED LIST changes: +BUDE10.7 IH; -CEPH500B PO; +EZET10TA48 PO; +LISI5TAB21 PO; +ROSU40TA88 PO
--- NOTE | 2024-08-31 12:54 | HMCIMG ---
Exam Type: HIP UNILAT 2-3VW RIGHT, PELVIS 1-2VWS Clinical Information: injury/pain Comparison: None Findings: Old healed right obturator ring fractures. No acute fractures. Osteopenia. Vascular calcifications Soft tissues are preserved. IMPRESSION: No acute pathology.
--- NOTE | 2024-08-31 12:54 | HMCIMG ---
Exam Type: HAND 3+VWS LT Clinical Information: injury/pain Comparison: None Findings: There is osteopenia. The examination is otherwise unremarkable. No fractures or dislocations are seen. No radiopaque foreign bodies are noted. Soft tissues are preserved. IMPRESSION: Osteopenia. No acute pathology.
--- NOTE | 2024-08-31 12:56 | HMCIMG ---
Exam Type: HAND 3+VWS RT Clinical Information: injury/pain Comparison: None Findings: There is osteopenia. The examination is otherwise unremarkable. No fractures or dislocations are seen. No radiopaque foreign bodies are noted. Soft tissues are preserved. IMPRESSION: Osteopenia. No acute pathology.
--- NOTE | 2024-08-31 13:21 | ERN ---
General Chief Complaint: Multiple Complaints Stated Complaint: FALL Time Seen by MD: 11:42 History of Present Illness Initial Comments 69-year-old female who presents for right hip pain, bilateral hand pain leg tingling. She reports she fell about a month ago which injured her right hip. It was that she was having on and off pain. No vomiting. No fevers. No bowel changes, no urinary symptoms. She was no motor deficits. Allergies: Coded Allergies: No Known Drug Allergies (Verified Allergy, Unknown, 08/26/15) Home Meds Active Scripts Meloxicam (Meloxicam) 15 Mg Tablet, 15 MG PO DAILY PRN for PAIN for 10 Days, #10 TAB Prov:DEVNI LEONE DO 03/31/24 Gabapentin (Gabapentin) 100 Mg Capsule, 1 CAP PO TID for 30 Days, #90 CAP 0 Refills Prov:DEVIN LEONE DO 03/31/24 Reported Medications Budesonide/Glycopyr/Formoterol (Breztri Aerosphere Inhaler) 160 Mcg-9 Mcg-4.8 Mcg/Actuation Hfa.aer.ad, 2 PUFF IH BID for 30 Days, #10.7 GM 0 Refills 05/30/24 Lisinopril (Lisinopril) 5 Mg Tablet, 1 TAB PO DAILY for 30 Days, #30 TAB 0 Refills 05/30/24 Rosuvastatin Calcium (Rosuvastatin Calcium) 40 Mg Tablet, 1 TAB PO DAILY for high cholesterol for 30 Days, #30 TAB 0 Refills 05/30/24 Ezetimibe (Ezetimibe) 10 Mg Tablet, 1 TAB PO DAILY for 30 Days, #30 TAB 0 Refills 05/30/24 Aspirin (ASPIRIN 81 MG ECTAB) 81 Mg Ectab, 81 MG PO DAILY, TAB.EC 01/25/24 Metoprolol Succinate (Metoprolol Succinate) 25 Mg Tab.er.24h, 25 MG PO HS, TAB 01/01/24 Insulin Degludec (Tresiba Flextouch U-200) 200 Unit/Ml (3 Ml) Insuln.pen, 60 UNIT SQ HS, SYRINGE 01/01/24 Insulin Degludec (Tresiba Flextouch U-200) 200 Unit/Ml (3 Ml) Insuln.pen, 50 UNIT SQ AM, SYRINGE 01/01/24 Nitroglycerin (Nitroglycerin) 0.4 Mg Tab.subl, 0.4 MG SL Q5MIN PRN for CHEST PAIN, #3 TAB.SL 08/28/23 Ticagrelor (Brilinta) 90 Mg Tablet, 90 MG PO BID, TAB 08/28/23 Past Medical History Past Medical History: CAD, COPD, Diabetes-Type II, High Cholesterol, Hypertension, Vascular Disease Medical History Other: PAD/PVD Past Surgical History: Other Surgical History Other: CARDIAC STENTS Family History Family History: Negative Social History Social History: Smokers, ETOH, Negative, Other Female( History) History: Not Applicable ROS Dictation CONSTITUTIONAL: No chills, no fever, no weakness, no diaphoresis, no malaise. HEAD/FACE: No signs of trauma. EENT: No eye pain, no blurred vision, no tearing, no double vision, no ear pain, no ear discharge, no nose pain, no nasal congestion, no throat pain, no throat swelling, no mouth pain. RESPIRATORY: No cough, no orthopnea, no SOB, no stridor, no wheezing. CARDIOVASCULAR: No chest pain, no edema, no palpitations, no syncope. GASTROINTESTINAL/ABDOMINAL: No abdominal pain, no constipation, no diarrhea, no nausea, no vomiting. GENITOURINARY: No abnormal discharge, no dysuria, no frequent urination, no hematuria. No complaints of pain in the genitals. MUSCULOSKELETAL: Hip pain muscle pain INTEGUMENTARY: No change in color, no change in hair/nails, no dryness, no lesion, no lumps, no rash. NEUROLOGICAL/PSYCH: No anxiety, not depressed, no emotional problem, no headache, no numbness, no pre-existing deficit, no history of seizures, no tremors, no weakness. HEMATOLOGIC/LYMPHATIC: Not anemic, no history of blood clots, no apparent bleeding, no bruising, glands not swollen. All Systems Negative, Except as Noted. Physical Exam Physical Exam Dictation VITAL SIGNS: Reviewed. GENERAL APPEARANCE: Alert, oriented x3, no acute distress, obese. HEAD AND FACE: Non-traumatic. EYES: PERRL, pink conjunctivas, eyelid no trauma, anterior chamber clear. EARS: Pinnas intact and no signs of trauma or erythema. Ear canals clear and no discharge. TMs no erythema. NOSE: No discharge, no bleeding. OROPHARYNX: Mouth normal, teeth no caries, tongue pink. Pharynx clear, no erythema. Tonsils no exudates, no abscesses noted. Mucous membrane moist. NECK: Supple, non-tender, no thyromegaly, no masses, no JVD, no bruits. BREAST: Deferred. CHEST: No tenderness, no crepitus, no paradoxical movement, no retractions. LUNGS: Clear, well-ventilated, symmetric, no rales, no wheezing, no rhonchi, no stridor, good breath sounds bilaterally. HEART: Regular rate, regular rhythm, no murmur, no gallops. VASCULAR: No peripheral edema. ABDOMEN: Soft, positive bowel sounds, nondistended, no guarding, nontender, no rebound, no masses no hepatomegaly, no splenomegaly, no Barton's sign, no hernias. RECTAL: Deferred. GENITAL: Deferred. NEUROLOGICAL: Normal speech, gross motor function intact, gross sensory function intact. MUSCULOSKELETAL: Neck nontender, full range of motion, back nontender, full range of motion. EXTREMITIES: Nontender, full range of motion. SKIN: Color pink, dry, no turgor, no rash, no lacerations, no abrasions, no contusions. LYMPHATICS: Deferred. MDM CC: Right hip pain bilateral hand pain Historian: Patient Comorbidities: CAD, COPD, DM two, DLD, HTN, vascular disease Limitations by social determinants of health: None Differential diagnosis: Wide, back injury, fracture, pain, arthritis, other vital signs: Stable remained stable here in the ER. No labs indicated Pelvis x-ray per my independent interpretation shows osteopenia no obvious fractures Bilateral hand x-ray ( independently interpreted by me): osteopenia arthritis Patient was symptoms most consistent with arthritis. No red flags for back pain. It is mostly in the hip. X-ray is unremarkable. Given a dose of Toradol intramuscular in the ER given a [place] We will DC with meloxicam recommend PCP follow up. ED Course Orders Procedure Category Date Status Time Hand 3+Vws Lt RAD 08/31/24 Resulted 11:49 Hand 3+Vws Rt RAD 08/31/24 Resulted 11:49 Pelvis 1-2vws RAD 08/31/24 Resulted 11:49 Hip Unilat 2-3vw Right RAD 08/31/24 Resulted 11:49 Ketorolac PHA 08/31/24 Complete Tromethamine 15mg/Ml 12:00 Hydrocodone/Apap PHA 4/12/25 Complete 5/325 ([place] 5/325mg) 12:00 Current Medications Medications (Trade) Dose Ordered Sig/Kya Route PRN Reason Start Time Stop Time Status Last Admin Dose Admin Acetaminophen/ Hydrocodone Bitart (NORco 5/325MG) 1 tab ONCE ONCE PO 08/31/24 12:00 08/31/24 12:01 DC Ketorolac Tromethamine (toRADol) 15 mg ONCE ONCE IM 08/31/24 12:00 08/31/24 12:01 DC Vital Signs Date Time Temp Pulse Resp B/P (MAP) Pulse Ox O2 Delivery O2 Flow Rate FiO2 08/31/24 11:42 97.5 87 16 100/69 98 Room Air 0 08/31/24 11:42 97.5 87 16 100/69 98 Room Air* 0 21 DX & DISP Disposition: Discharge Departure Impression: Primary Impression: Hip pain Additional Impressions: Osteopenia, Arthritis pain Condition: Stable Scripts Meloxicam (Meloxicam) 15 Mg Tablet 15 MG PO DAILY PRN for PAIN for 10 Days, #10 TAB Prov: DEVIN LEONE DO 08/31/24 Additional Instructions: Your symptoms are consistent with arthritis type pain. Your x-rays do not show any fractures. You do have osteopenia and some arthritis. This is likely causing your discomfort. You received intramuscular Toradol and a [place] tab here in the ER. I have prescribed meloxicam, which is an anti-inflammatory pain medication. Take this once per day for the next week or so for your symptoms. Please follow up with your primary doctor. Referrals: LISA JENKINS MD (PCP) DEVIN LEONE DO Aug 31, 2024 13:21
[2024-08-31] MEDS: HYDROcodone/APAP 5/325 1 TAB TABLET PO ONE (13:24)
[2024-08-31] MEDS: ketOROlac 15MG/ML VIAL (15MG/ML) IM ONE (13:25)
[2024-08-31 13:28] VITALS: BP 128/63; PULSE 74; RESP 20; TEMP 98.8; O2SAT 98
== END 2024-08-31 13:31 | disposition home or self-care (01) ==
LOC: EDH 11:41
DX: M25.551 Pain in right hip (principal); M85.80 Other specified disorders of bone density and structure, unspecified site; M19.90 Unspecified osteoarthritis, unspecified site; E11.51 Type 2 diabetes mellitus with diabetic peripheral angiopathy without gangrene; E78.00 Pure hypercholesterolemia, unspecified; I10 Essential (primary) hypertension; F17.200 Nicotine dependence, unspecified, uncomplicated; I25.10 Atherosclerotic heart disease of native coronary artery without angina pectoris; J44.9 Chronic obstructive pulmonary disease, unspecified; Z79.02 Long term (current) use of antithrombotics/antiplatelets; Z79.82 Long term (current) use of aspirin; Z79.899 Other long term (current) drug therapy; Z95.5 Presence of coronary angioplasty implant and graft
CPT/HCPCS: 99284; 73130; 73502; 96372; 72170; J1885

== ENCOUNTER → 2024-12-10 | Outpatient (CLI) | payer OTHER, MEDICAID ==
[~2024-12-10] MED LIST changes: +CEPH500B PO; +IOHEXOL-350 75 ML VIAL IV ONE
--- NOTE | 2024-12-11 12:07 | HMCIMG ---
EXAMINATION: CT ANGIOGRAM OF ABDOMEN AND PELVIS AND RUNOFFS OF THE BILATERAL LOWER EXTREMITIES. CLINICAL HISTORY: Peripheral vascular disease, unspecified. COMPARISON: None provided. TECHNIQUE: MDCT angiogram of the abdominal aortic vessels was performed after administration of intravenous contrast. FINDINGS: There are atheromatous wall calcification of the aorta, iliac, and both lower limb arteries. There is no aneurysm or dissection. There is no stenosis or occlusion. The abdominal aortic branches, viz., the celiac and superior mesenteric arteries, are normal in caliber. There is no stenosis or occlusion. The angle between superior mesenteric artery and aorta is normal. Bilateral renal arteries are normal in caliber. There is no stenosis or occlusion. The inferior mesenteric arteries are normal in caliber. Bifurcation morphology is normal. There is no stenosis or occlusion. The bilateral common iliac arteries are normal in caliber. No stenosis or occlusion. The bilateral external iliac arteries are normal in caliber. Their branches are normal, and the bilateral internal iliac arteries are normal; there is no stenosis or occlusion. The bilateral superficial femoral arteries are normal in caliber. There is no stenosis or occlusion. The bilateral profunda femoris and popliteal arteries are normal in size and caliber. There is no stenosis or occlusion. The bilateral tibioperoneal trunks are normal. There is no stenosis or occlusion. Complete stenosis of the mid and distal segment of the bilateral anterior tibial arteries. Complete stenosis of the bilateral proximal and mid posterior tibial artery with collateralized streaky flow in the distal segment. The bilateral peroneal arteries are normal in size and caliber. There is no stenosis or occlusion. Within the abdomen and pelvis, liver is normal in caliber with uniform decreased density; surgically absent gallbladder; non-enhancing hypodense cystic lesion in the body of the pancreas measuring 0.8 x 0.6 cm ??? likely to be cyst. ; spleen, adrenal glands, and kidneys are within normal limits; there is infraumbiical hernia; there are colonic diverticula; rest of the bowel loops are normal in caliber without evidence of obstruction, ileus, or bowel wall thickening, and the appendix is normal; urinary bladder is suboptimally distended; surgically absent uterus; both ovaries are not visualized. IMPRESSION: Atheromatous wall calcification of the aorta, iliac and both lower limb arteries with complete stenosis of the bilateral mid and distal segment of the bilateral anterior tibial arteries and complete stenosis of the bilateral proximal and mid posterior tibial artery with collateralized streaky flow in the distal segment ??? mild peripheral vascular disease. No acute abdominal or pelvic pathology. /[place]
== END | disposition home or self-care (01) ==
LOC: RAH 08:01 → EDSTATUS 09:00
PROVIDERS: ATTEND Internal Medicine Cardiovascular Disease
DX: I70.0 Atherosclerosis of aorta (principal); I70.203 Unspecified atherosclerosis of native arteries of extremities, bilateral legs; K86.2 Cyst of pancreas; N32.89 Other specified disorders of bladder; Z90.710 Acquired absence of both cervix and uterus; Z90.49 Acquired absence of other specified parts of digestive tract
CPT/HCPCS: 75635; Q9967